=== PATIENT | female | born 1960 | race Caucasian/White ===

== ENCOUNTER 2020-03-31 08:46 | Outpatient (REF) | payer OTHER, MEDICARE, SELFPAY ==
--- NOTE | 2020-03-31 09:06 | XR_ITS ---
EXAMINATION: XR BILATERAL KNEES ONE VIEW. XR RIGHT KNEE. CLINICAL INFORMATION: Right knee pain. COMPARISON: 10/10/2018 TECHNIQUE: AP bilateral knees 1 view. Right knee 2 views. FINDINGS: Right Knee: Stable positioning and alignment of the right knee arthroplasty components. No fracture, dislocation or x-ray evidence of loosening is seen. Small suprapatellar joint fluid. Left Knee: Normal alignment. Maintained joint spaces. XR/XR knee standing BI IMPRESSION: Stable satisfactory appearance of the right knee arthroplasty.
--- NOTE | 2020-03-31 09:06 | XR_ITS ---
EXAMINATION: XR BILATERAL KNEES ONE VIEW. XR RIGHT KNEE. CLINICAL INFORMATION: Right knee pain. COMPARISON: 10/10/2018 TECHNIQUE: AP bilateral knees 1 view. Right knee 2 views. FINDINGS: Right Knee: Stable positioning and alignment of the right knee arthroplasty components. No fracture, dislocation or x-ray evidence of loosening is seen. Small suprapatellar joint fluid. Left Knee: Normal alignment. Maintained joint spaces. XR/XR knee RT 2V IMPRESSION: Stable satisfactory appearance of the right knee arthroplasty.
== END 2020-03-31 08:47 | disposition home or self-care (01) ==
LOC: HO.HOSX 08:46
PROVIDERS: Visit Provider Orthopaedic Surgery
DX: M25.561 Pain in right knee (principal); M25.562 Pain in left knee; M70.51 Other bursitis of knee, right knee
CPT/HCPCS: 20605; 20610; 73560; 73565; 99212; J1020

== ENCOUNTER 2023-01-05 10:00 | Emergency (ER) | payer OTHER, MEDICAID, SELFPAY ==
--- NOTE | ~2023-01-05 | XR_ITS ---
EXAMINATION: XR CHEST CLINICAL INFORMATION: Cough and shortness of breath COMPARISON: CT abdomen pelvis 10/21/2015 TECHNIQUE: 2 views of the chest were obtained. FINDINGS: Heart size normal. There is no evidence of CHF. Lungs are mildly hyperinflated with flattening of the diaphragms on the lateral radiograph suggesting underlying COPD. Some mild left basilar atelectasis is present with some obscuration of the left hemidiaphragm. No consolidations, pleural effusions or lung masses are seen. XR/XR chest 2V IMPRESSION: No acute intrathoracic disease. Mild left basilar atelectasis.
[2023-01-05 10:10] VITALS: BP 130/74; PULSE 94; RESP 19; TEMP 36.6; O2SAT 96; BMI 38.2
[2023-01-05 11:02] LABS: COVID-19 Test Negative (Negative); IDNOW Serial# 08D9AD1C; IDNOW Serial# BCCEAD1C; Influenza A Negative (Negative); Influenza B2 Negative (Negative)
--- NOTE | 2023-01-05 12:34 | ED.URI ---
HPI - URI/Sore Throat General Chief Complaint: Upper Respiratory Symptoms Stated Complaint: cough diff breathing Time Seen by Provider: 01/05/23 12:34 Source: patient Mode of arrival: ambulatory Limitations: no limitations History of Present Illness HPI Narrative: 62-year-old female, former smoker with history of COPD presents to the ER for evaluation of cough and shortness of breath for the last 1 week. She states she has had a productive cough with chest tightness when coughing. She is more short of breath with exertion than usual. She has been taking DayQuil and NyQuil with minimal relief. She lives with her grandson who has been sick with a upper respiratory tract infection. She denies any fevers but has had some chills. 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 She states her phlegm is white and has a hard time expectorating it. No hemoptysis. MD elicited complaint: cough and other ( Short of breath) Pertinent past history: COPD Onset (ago): week(s) (1) Consistency: progressively worsening Severity: moderate Description of mucous: clear and other ( white) Able to tolerate fluids by mouth: Yes Exacerbating factors: exertion Relieving factors: OTC cold medicine Context: sick contacts Associated symptoms: chills, nasal congestion, cough, chest pain and shortness of breath Treatments prior to arrival: none Related Data Home Medications Medication Instructions Recorded Confirmed ropinirole 2 mg tablet 2 mg PO DAILY 03/27/20 Previous Rx's Medication Instructions Recorded albuterol sulfate 90 mcg/actuation 2 puff inhalation Q4-6H PRN 01/05/23 aerosol inhaler shortness of breath or wheezing #8.5 grams azithromycin 250 mg tablet See Rx Instructions PO .COMPLEX #6 01/05/23 (Zithromax Z-Oscar) tabs benzonatate 100 mg capsule 100 mg PO TID PRN cough #20 caps 01/05/23 guaifenesin 1,200 mg tablet, 1,200 mg PO Q12H #14 tabs 01/05/23 extended release 12 hr (Mucinex) prednisone 10 mg tablets in a dose See Taper PO DAILY #48 ea 01/05/23 pack Allergies Allergy/AdvReac Type Severity Reaction Status Date / Time hydrocodone [From VICODIN] Allergy Mild NAUSEA & Verified 01/05/23 10:10 VOMITING acetaminophen [Vicodin] Allergy Unknown Nausea and Verified 01/05/23 10:10 Vomiting Review of Systems Review of Systems: Yes all other systems are reviewed and are negative [facility] Past Medical History Medical History (Updated 01/05/23 @ 12:35 by ALCIRA Emerson) Restless leg syndrome Surgical History (Updated 03/27/20 @ 12:26 by Kaylee Casillas CMA) History of total right knee replacement (~10/03/16) Previous section Social History Social History (Updated 03/27/20 @ 12:27 by Kaylee Casillas CMA) Advance Directives: No Current occupational status: retired Current occupation: Right Handed Physical Exam Vital Signs: Vital Signs: Last Vital Signs Temp 98 F 01/05/23 10:10 Pulse 94 01/05/23 10:10 Resp 19 01/05/23 10:10 BP 130/74 01/05/23 10:10 Pulse Ox 96 01/05/23 10:10 O2 Del Method Room Air 01/05/23 10:10 BMI result Body Mass Index 38.2 Appearance: Alert. Oriented X3. No acute distress. Head: normocephalic, atraumatic. Eyes: Pupils equal, round and reactive to light. ENT: Pharynx normal. No tonsillar swelling or exudate. Clear nasal drainage Neck: Normal inspection. Neck supple. CVS: Normal heart rate and rhythm. Pulses normal. Respiratory: No respiratory distress. speaking in complete sentences. expiratory rhonchi/wheeze scattered throughout. Some clear with congested coughing. Abdomen: Centrally obese, Soft and nontender. +BS x4 Skin: Skin warm and dry. Normal skin color. Normal skin turgor. No rashes. Extremities: No lower extremity edema. No joint swelling. No calf tenderness or swelling Neuro/psych: Oriented X 3. No motor deficit. No sensory deficit. CN II-XII intact. Normal speech and cognition. Medical Decision Making Medical Decision Making MDM Narrative: 60-year-old female with a history of COPD, obesity, former smoker who presents to the ER for evaluation of cough and shortness of breath for the last 1 week. Positive sick contacts from her grandson at home. She has scattered vein wheezing on examination, some of which are cleared with coughing. She is in no respiratory distress and saturating well on room air. She is having a hard time expectorates in her phlegm. Her chest x-ray was reviewed, no focal pneumonia appreciated. She is negative for COVID and flu. Her chest discomfort is only when coughing and is reproducible on examination. Doubt cardiac etiology. Will treat for acute bronchitis with steroids, antitussives, Z-Oscar, mucolytic and albuterol inhaler. She will follow-up with her primary care doctor, encourage pulmonary evaluation as well. She expressed understanding. All questions were answered and she is stable for discharge home. Return precautions were discussed. Differential Diagnosis Differential Diagnoses: The differential diagnosis associated with the presentation includes pneumonia, bronchitis, COPD exacerbation, CHF exacerbation, less likely ACS or PE Admission/Observation Consideration of admission/observation: Escalation of care including admission/observation considered 62-year-old female with history of COPD presenting with shortness of breath, had abnormal lung sounds but oxygenating well, comfortable discharge home rather than observation Lab Data MDM Lab Attestation statement: I reviewed the patient's lab results. Labs: Lab Results 01/05/23 Range/Units 10:15 COVID-19 (ALBINA) Negative (Negative) COVID-19 Clin Com See Note Influenza Type A (SRAVANTHI) Negative (Negative) Influenza Type B (SRAVANTHI) Negative (Negative) Influenza A & B Note See Note Independent Interpretation I performed an independent interpretation of an: Plain X-Ray Interpretation: no focal infiltrate, no effusion, agree w/ radiology read Radiology Impression Discussion of test interpretation with radiology: I have reviewed the radiologist's reading. Radiologist Impression: EXAMINATION: XR CHEST CLINICAL INFORMATION: Cough and shortness of breath COMPARISON: CT abdomen pelvis 10/21/2015 TECHNIQUE: 2 views of the chest were obtained. FINDINGS: Heart size normal. There is no evidence of CHF. Lungs are mildly hyperinflated with flattening of the diaphragms on the lateral radiograph suggesting underlying COPD. Some mild left basilar atelectasis is present with some obscuration of the left hemidiaphragm. No consolidations, pleural effusions or lung masses are seen. XR/XR chest 2V IMPRESSION: No acute intrathoracic disease. Mild left basilar atelectasis. External Record Review External record reviewed: Prior outpatient radiology Tests considered The following testing was considered but not selected: basic labs and EKG considered however this seems more like a upper respiratory tract infection and slight exacerbation of COPD rather than cardiac etiology, no evidence of sepsis Prescription Management I considered prescription management with: Antibiotic and Other ( bronchodilator and prednisone) Chronic Conditions Patient?s care impacted by: Other ( obesity, COPD) Critical Care Time Critical Care Time Critical Care Time: No Discharge Plan Discharge Clinical Impression: Bronchitis Patient Disposition: Home, Self-Care Instructions: Acute Bronchitis (ED) Additional Instructions: You tested negative for COVID-19 and influenza a and B. Your chest x-ray did not show any evidence of pneumonia. Take the the prescribed medications as directed. Recommend following up with her primary care doctor and pulmonology for further evaluation and treatment. If you develop new or worsening symptoms call 911 or come back to the ER for further evaluation. Prescriptions: New azithromycin [Zithromax Z-Oscar] 250 mg tablet See Rx Instructions .ROUTE .COMPLEX Qty: 6 0RF Rx Instructions: take 500 mg today (day 1), then 250 mg for 4 days (days 2-5) prednisone 10 mg tablets,dose pack See Taper PO DAILY Qty: 48 0RF Taper: Prednisone 40 mg daily for 3 Days and 0 Hour 30 mg daily for 3 Days and 0 Hour 20 mg daily for 3 Days and 0 Hour 10 mg daily for 3 Days and 0 Hour Mucinex 1,200 mg tablet extended release 12hr 1,200 mg PO Q12H Qty: 14 0RF benzonatate 100 mg capsule 100 mg PO TID PRN (Reason: cough) Qty: 20 0RF albuterol sulfate 90 mcg/actuation HFA aerosol inhaler 2 puff inhalation Q4-6H PRN (Reason: shortness of breath or wheezing) Qty: 8.5 0RF Referrals: [facility] [Provider Group] (untreated COPD, former smoker)
== END 2023-01-05 13:08 | disposition home or self-care (01) ==
PROVIDERS: Emergency Provider Emergency Medicine
DX: J40 Bronchitis, not specified as acute or chronic (principal); R06.02 Shortness of breath; Z20.822 Contact with and (suspected) exposure to COVID-19; J44.9 Chronic obstructive pulmonary disease, unspecified; Z87.891 Personal history of nicotine dependence
CPT/HCPCS: 71046; 87502; 87635; 99282; 99283

== ENCOUNTER 2023-04-18 09:34 | Emergency (ER) | payer OTHER, SELFPAY ==
--- NOTE | ~2023-04-18 | CT_ITS ---
EXAMINATION: CT HEAD WITHOUT CONTRAST CLINICAL INFORMATION: Fall. Head strike. COMPARISON: None available. TECHNIQUE: Contiguous axial imaging was performed from the skull base to vertex without intravenous administration of contrast. This CT examination was performed using dose optimization techniques as appropriate, variously including the following: *Automated exposure control. *Adjustment of mA and/or kV according to patient size (this includes techniques or standardized protocols for targeted exams where dose is matched to indication/reason for exam; i.e. extremities or head). *Use of iterative reconstruction technique. DLP: 677 mGy-cm FINDINGS: There is no evidence of acute intracranial hemorrhage or edematous territorial infarction. Gustafson-white matter differentiation is preserved. There is no abnormal attenuation within the brain parenchyma. The ventricles are normal in morphology and size. No evidence for obstructive hydrocephalus. No abnormal mass effect or midline shift. No extra-axial fluid collections. No acute soft tissue or osseous abnormalities. Mild mucosal thickening of the paranasal sinuses. Moderate rightward nasal septal deviation with spurring. The mastoid air cells and middle ear cavities are clear. CT/CT head/brain wo IV con IMPRESSION: No evidence of acute intracranial hemorrhage or edematous territorial infarction.
--- NOTE | ~2023-04-18 | XR_ITS ---
EXAMINATION: Lumbar spine and sacrum coccyx. CLINICAL INDICATIONS: Back pain. COMPARISON: Lumbar spine 02/20/2015. TECHNIQUE: Lumbar spine 3 views. Sacrum/coccyx 2 views. FINDINGS: LUMBAR SPINE: There is normal lumbar lordosis. The vertebral heights, alignment and disc heights are normal. There is no visible acute fracture, dislocation or subluxation seen. No aggressive lytic or sclerotic process. SACRUM AND/OR COCCYX: The SI joints are symmetrical. No visible fracture or bony abnormality seen. The soft tissues are normal. XR/XR sacrum coccyx min 2V IMPRESSION: 1. Unremarkable lumbar spine exam. 2. Unremarkable sacrum and/or coccyx exam.
--- NOTE | ~2023-04-18 | XR_ITS ---
EXAMINATION: Lumbar spine and sacrum coccyx. CLINICAL INDICATIONS: Back pain. COMPARISON: Lumbar spine 02/20/2015. TECHNIQUE: Lumbar spine 3 views. Sacrum/coccyx 2 views. FINDINGS: LUMBAR SPINE: There is normal lumbar lordosis. The vertebral heights, alignment and disc heights are normal. There is no visible acute fracture, dislocation or subluxation seen. No aggressive lytic or sclerotic process. SACRUM AND/OR COCCYX: The SI joints are symmetrical. No visible fracture or bony abnormality seen. The soft tissues are normal. XR/XR lumbar spine 2-3V IMPRESSION: 1. Unremarkable lumbar spine exam. 2. Unremarkable sacrum and/or coccyx exam.
[2023-04-18 10:19] VITALS: BP 148/105; PULSE 106; RESP 18; TEMP 37.9; O2SAT 97; BMI 36.8
[2023-04-18 11:02] LABS: Appearance Urine Cloudy; Color Urine Dark Yellow; Glucose Urine UA Negative (Negative); Leukocyte Esterase Urine Trace (Negative); Nitrite Urine Negative (Negative); Specific Gravity - Urine 1.025 (1.005-1.025); UMIC TRIGGER UACC YES; Urine Blood Trace (Negative); Urine Ketones Trace mg/dL (Negative); Urine Protein 30 (1+) mg/dL (Neg-Trace)
[2023-04-18 11:11] LABS: Bacteria Urine 4+ (None Seen); Hyaline Casts Urine 0-2 /LPF (0-2); RBC Urine >20 /HPF (0-2); Squamous Epithelial Cell Urine >20 /HPF (0-2); UACC Culture Trigger YES
[2023-04-18 15:26] LABS: Alanine Aminotransferase 23 U/L (0-31); Albumin Level 4.8 g/dL (3.5-5.0); Alkaline Phosphatase 116 U/L (39-117); Anion Gap 15 (12-20); Aspartate Amino Transferase 22 U/L (5-31); Bilirubin Direct 0.2 mg/dL (0.0-0.5); Bilirubin Total 0.4 mg/dL (0.0-1.0); Blood Urea Nitrogen 10 mg/dL (9-16); Calcium 9.8 mg/dL (8.4-10.2); Carbon Dioxide 26 mmol/L (22-29); Chloride 101 mmol/L (96-108); Creatinine Clr Calc Pharmacy 97.7; Estimated Glomerular Filt Rate > 60; Glucose Random 99 mg/dL (60-115); Magnesium 2.3 mg/dL (1.6-2.6); Potassium 3.8 mmol/L (3.3-5.1); Sodium 138 mmol/L (135-145); Total Protein 8.2 g/dL (6.5-8.0)
[2023-04-18 15:52] LABS: Basophils Percent Auto 0.3 % (0-2); Eosinophils Percent Auto 0.2 % (0-4); Hemoglobin 15.2 g/dl (12.0-16.0); Imm Gran Abs Auto 0.03 X10*3/uL (0.00-0.03); Imm Gran Pct Auto 0.5 % (0.0-0.4); Lymphocytes Absolute Auto 0.9 X10*3/uL (1.2-4.9); Lymphocytes Percent Auto 14.8 % (20-40); Mean Corpuscular Volume 90.9 fL (80.0-98.0); Mean Platelet Volume 10.5 fL (9.4-12.3); Monocytes Absolute Auto 0.8 X10*3/uL (0.1-1.2); Monocytes Percent Auto 13.2 % (2-11); Neutrophils Absolute Auto 4.5 x10*3/uL (2.0-8.3); Platelet Count 216 X10*3/uL (160-400); Red Blood Count 5.06 X10*6/uL (4.20-5.50); Red Cell Distribution Width 14.2 % (11.0-16.0); White Blood Count 6.3 X10*3/uL (4.8-10.8)
[2023-04-18 15:55] LABS: MANUAL DIFF FLAG NO
[2023-04-18 16:33] VITALS: BP 186/92; PULSE 97; RESP 18; TEMP 37; O2SAT 97
--- NOTE | 2023-04-18 16:35 | PC.NURSE ---
Patient brought in for re-evaluation. Patient complaining of generalized pain from a fall a few days ago and states that she is having bladder incontinence. Patient also worried because she is supposed to get a CT scan and ultrasound tomorrow to evaluate gallstones.
--- NOTE | 2023-04-18 16:40 | ED.GENADULT ---
HPI - General Adult General Chief complaint: General Medical Stated complaint: Fall wks ago/Urine incontinence/Headache Related Data Home Medications Medication Instructions Recorded Confirmed ropinirole 2 mg tablet 2 mg PO DAILY 03/27/20 Previous Rx's Medication Instructions Recorded albuterol sulfate 90 mcg/actuation 2 puff inhalation Q4-6H PRN 01/05/23 aerosol inhaler shortness of breath or wheezing #8.5 grams azithromycin 250 mg tablet See Rx Instructions PO .COMPLEX #6 01/05/23 (Zithromax Z-Oscar) tabs benzonatate 100 mg capsule 100 mg PO TID PRN cough #20 caps 01/05/23 guaifenesin 1,200 mg tablet, 1,200 mg PO Q12H #14 tabs 01/05/23 extended release 12 hr (Mucinex) prednisone 10 mg tablets in a dose See Taper PO DAILY #48 ea 01/05/23 pack Allergies Allergy/AdvReac Type Severity Reaction Status Date / Time hydrocodone [From VICODIN] Allergy Mild NAUSEA & Verified 04/18/23 10:18 VOMITING acetaminophen [Vicodin] Allergy Unknown Nausea and Verified 04/18/23 10:18 Vomiting PMFSH Past Medical History Onset Date is defined in the Problem List Problems that require an onset date and time if occurred within 24 hrs of arrival to the ED Aortic Dissection and Rupture; Neurologic impairment; Cardiopulmonary Arrest; Endotracheal Intubation; Insertion or Replacement of Mechanical Circulatory Assist Device Medical History (Updated 01/06/23 @ 00:01 by Jorge Mehta) Restless leg syndrome Surgical History (Updated 03/27/20 @ 12:26 by Kaylee Casillas CMA) History of total right knee replacement (~10/03/16) Previous section Social History Social History (Updated 03/27/20 @ 12:27 by Kaylee Casillas CMA) Advance Directives: No Advance Directives Information Provided: No Current occupational status: retired Current occupation: Right Handed Physical Exam ED Vital Signs: Vital Signs - 24 hr 04/18/23 10:19 04/18/23 16:33 Temperature 100.2 F 98.6 F Pulse Rate 106 H 97 Respiratory Rate 18 18 Blood Pressure 148/105 H 186/92 H Pulse Oximetry 97 97 Oxygen Delivery Method Room Air BMI result Body Mass Index 36.8 Course Course Course Narrative: This is an RME: Additional HPI, ROS, PE not included below will be deferred to primary provider. This is a 62-year-old female Presenting to the emergency department with complaints status post mechanical fall which occurred on 04/08/2023. she states that she took a step backwards off her deck and landed onto her buttocks striking her posterior head. She has had intermittent headaches, nausea, and urinary incontinence. Denies any dysuria, hematuria. no abdominal pain. She reports pain to her low back. she is neurologically intact plan: labs, UA, CT head, lumbar spine, sacrum x-rays Medications Administered Discontinued Medications Generic Name Dose Route Start Last Admin Trade Name Freq PRN Reason Stop Dose Admin Acetaminophen 975 mg 04/18/23 16:48 04/18/23 16:53 Acetaminophen 325 Mg Tablet PO 04/18/23 16:49 975 mg ONCE ONE Administration Medical Decision Making Lab Data 04/18/23 15:46 04/18/23 15:01 Labs: Lab Results 04/18/23 04/18/23 04/18/23 Range/Units 10:56 15:01 15:46 WBC 6.3 (4.8-10.8) X10*3/uL RBC 5.06 (4.20-5.50) X10*6/uL Hgb 15.2 (12.0-16.0) g/dl Hct 46.0 (37.0-47.0) % MCV 90.9 (80.0-98.0) fL MCH 30.0 (27.0-33.0) pg MCHC 33.0 (31.0-35.0) g/dl RDW 14.2 (11.0-16.0) % Plt Count 216 (160-400) X10*3/uL MPV 10.5 (9.4-12.3) fL Immature Gran % (Auto) 0.5 H (0.0-0.4) % Neut % (Auto) 71.0 (45-73) % Lymph % (Auto) 14.8 L (20-40) % [place] % (Auto) 13.2 H (2-11) % Eos % (Auto) 0.2 (0-4) % Baso % (Auto) 0.3 (0-2) % Lymph # (Auto) 0.9 L (1.2-4.9) X10*3/uL [place] # (Auto) 0.8 (0.1-1.2) X10*3/uL Eos # (Auto) 0.0 (0.0-0.4) X10*3/uL Baso # (Auto) 0.0 (0.0-0.2) X10*3/uL Abs Immat Gran (auto) 0.03 (0.00-0.03) X10*3/uL Absolute Neuts (auto) 4.5 (2.0-8.3) x10*3/uL Absolute Nucleated RBC 0.000 (0.0-0.012) X10*3/uL Nucleated RBC % (auto) 0.0 (0.0-0.2) /100WBC Sodium 138 (135-145) mmol/L Potassium 3.8 (3.3-5.1) mmol/L Chloride 101 (96-108) mmol/L Carbon Dioxide 26 (22-29) mmol/L Anion Gap 15 (12-20) BUN 10 (9-16) mg/dL Creatinine 0.75 (0.5-1.4) mg/dL Estim Creat Clear Calc 97.7 Estimated GFR > 60 Random Glucose 99 (60-115) mg/dL Calcium 9.8 (8.4-10.2) mg/dL Magnesium 2.3 (1.6-2.6) mg/dL Total Bilirubin 0.4 (0.0-1.0) mg/dL Direct Bilirubin 0.2 (0.0-0.5) mg/dL AST 22 (5-31) U/L ALT 23 (0-31) U/L Alkaline Phosphatase 116 (39-117) U/L Total Protein 8.2 H (6.5-8.0) g/dL Albumin 4.8 (3.5-5.0) g/dL Urine Color Dark Yellow Urine Appearance Cloudy Urine pH 6.0 (5.0-9.0) Ur Specific Pinson 1.025 (1.005-1.025) Urine Protein 30 (1+) H (Neg-Trace) mg/dL Urine Glucose (UA) Negative (Negative) mg/dL Urine Ketones Trace (Negative) mg/dL Urine Blood Trace H (Negative) Urine Nitrite Negative (Negative) Ur Leukocyte Esterase Trace H (Negative) Urine RBC >20 H (0-2) /HPF Urine WBC 6-10 H (0-5) /HPF Ur Squamous Epith Cells >20 (0-2) /HPF Urine Bacteria 4+ (None Seen) Hyaline Casts 0-2 (0-2) /LPF Discharge Plan Discharge Prescriptions: No Action azithromycin [Zithromax Z-Oscar] 250 mg tablet See Rx Instructions .ROUTE .COMPLEX Qty: 6 0RF Rx Instructions: take 500 mg today (day 1), then 250 mg for 4 days (days 2-5) prednisone 10 mg tablets,dose pack See Taper PO DAILY Qty: 48 0RF Taper: Prednisone 40 mg daily for 3 Days and 0 Hour 30 mg daily for 3 Days and 0 Hour 20 mg daily for 3 Days and 0 Hour 10 mg daily for 3 Days and 0 Hour Mucinex 1,200 mg tablet extended release 12hr 1,200 mg PO Q12H Qty: 14 0RF benzonatate 100 mg capsule 100 mg PO TID PRN (Reason: cough) Qty: 20 0RF albuterol sulfate 90 mcg/actuation HFA aerosol inhaler 2 puff inhalation Q4-6H PRN (Reason: shortness of breath or wheezing) Qty: 8.5 0RF
[2023-04-18] MEDS: Acetaminophen 325 MG TABLET 975 MG PO (16:53)
--- NOTE | 2023-04-18 20:06 | ED_ITS ---
HPI - General Adult General Chief complaint: General Medical Stated complaint: Fall wks ago/Urine incontinence/Headache Time Seen by Provider: 04/18/23 19:51 History of Present Illness HPI narrative: Patient is a 62-year-old female with a history of accidental fall approximately 1 week ago. Landed on the back of her head. There is no loss of consciousness. Since then patient has been having headaches. Patient also complaining of having increasing frequency. Patient knows when she needs to go but is unable to make it to the bathroom. Denies any focal weakness in the lower extremity. Patient is not on any blood thinners. There is also back pain associated with the fall. Patient claims that she landed on her back and in a occipital area. Denies any fever chills. Denies any coughing congestion upper respiratory symptoms. Denies any diaphoresis. Denies any neck pain. Related Data Home Medications Medication Instructions Recorded Confirmed ropinirole 2 mg tablet 2 mg PO DAILY 03/27/20 Previous Rx's Medication Instructions Recorded albuterol sulfate 90 mcg/actuation 2 puff inhalation Q4-6H PRN 01/05/23 aerosol inhaler shortness of breath or wheezing #8.5 grams azithromycin 250 mg tablet See Rx Instructions PO .COMPLEX #6 01/05/23 (Zithromax Z-Oscar) tabs benzonatate 100 mg capsule 100 mg PO TID PRN cough #20 caps 01/05/23 guaifenesin 1,200 mg tablet, 1,200 mg PO Q12H #14 tabs 01/05/23 extended release 12 hr (Mucinex) prednisone 10 mg tablets in a dose See Taper PO DAILY #48 ea 01/05/23 pack cephalexin 500 mg capsule 500 mg PO Q8H 7 days #21 caps 04/18/23 ibuprofen 400 mg tablet 400 mg PO Q6H PRN pain #20 tabs 04/18/23 Allergies Allergy/AdvReac Type Severity Reaction Status Date / Time hydrocodone [From VICODIN] Allergy Mild NAUSEA & Verified 04/18/23 10:18 VOMITING Review of Systems 2 Review of Systems: Positive head injury approximately 1 week ago Positive increasing frequency Yes all other systems are reviewed and are negative PMFSH Past Medical History Attestation statement: The following information was validated with the patient. Onset Date is defined in the Problem List Problems that require an onset date and time if occurred within 24 hrs of arrival to the ED Aortic Dissection and Rupture; Neurologic impairment; Cardiopulmonary Arrest; Endotracheal Intubation; Insertion or Replacement of Mechanical Circulatory Assist Device Medical History Restless leg syndrome Surgical History History of total right knee replacement (~10/03/16) Previous section Social History Social History Smoked in Last 30 Days: No Use of substances other than those prescribed or required for medical reasons: No Advance Directives: No Advance Directives Information Provided: No Patient : No Current occupational status: retired Current occupation: Right Handed Physical Exam ED Vital Signs: Vital Signs - 24 hr 04/18/23 10:19 04/18/23 16:33 Temperature 100.2 F 98.6 F Pulse Rate 106 H 97 Respiratory Rate 18 18 Blood Pressure 148/105 H 186/92 H Pulse Oximetry 97 97 Oxygen Delivery Method Room Air BMI result Body Mass Index 36.8 Medications Administered Discontinued Medications Generic Name Dose Route Start Last Admin Trade Name Freq PRN Reason Stop Dose Admin Acetaminophen 975 mg 04/18/23 16:48 04/18/23 16:53 Acetaminophen 325 Mg Tablet PO 04/18/23 16:49 975 mg ONCE ONE Administration Medical Decision Making Medical Decision Making [facility] Narrative: Patient is status post head injury is still complaining of extreme headache since the accident. A CT scan of the head was ordered. I reviewed radiology's reading which was grossly negative for any acute evidence of bleeding there is no fracture. Patient also complaining of lower back pain. There is no bowel urinary incontinence. Patient feels an increasing frequency of urination. Lumbar and sacral x-rays were both grossly negative for any acute fracture by my interpretation. A review radiology's reading. Patient's urine showed lots of contamination. Question UTI. In this setting will treat patient with Keflex for 1 week. Will have patient follow-up on an outpatient basis. Head injury precaution. Currently in stable condition. Differential Diagnosis Differential Diagnoses: The differential diagnosis associated with the presentation includes Intracranial bleed, fracture. Lumbar spine fracture, UTI, order coronary syndrome, spine fracture Admission/Observation Consideration of admission/observation: Escalation of care including admission/observation considered No need to be admitted. Patient is neurologically intact. Lab Data MDM Lab Attestation statement: I reviewed the patient's lab results. 04/18/23 15:46 04/18/23 15:01 Labs: Lab Results 04/18/23 04/18/23 04/18/23 Range/Units 10:56 15:01 15:46 WBC 6.3 (4.8-10.8) X10*3/uL RBC 5.06 (4.20-5.50) X10*6/uL Hgb 15.2 (12.0-16.0) g/dl Hct 46.0 (37.0-47.0) % MCV 90.9 (80.0-98.0) fL MCH 30.0 (27.0-33.0) pg MCHC 33.0 (31.0-35.0) g/dl RDW 14.2 (11.0-16.0) % Plt Count 216 (160-400) X10*3/uL MPV 10.5 (9.4-12.3) fL Immature Gran % (Auto) 0.5 H (0.0-0.4) % Neut % (Auto) 71.0 (45-73) % Lymph % (Auto) 14.8 L (20-40) % [place] % (Auto) 13.2 H (2-11) % Eos % (Auto) 0.2 (0-4) % Baso % (Auto) 0.3 (0-2) % Lymph # (Auto) 0.9 L (1.2-4.9) X10*3/uL [place] # (Auto) 0.8 (0.1-1.2) X10*3/uL Eos # (Auto) 0.0 (0.0-0.4) X10*3/uL Baso # (Auto) 0.0 (0.0-0.2) X10*3/uL Abs Immat Gran (auto) 0.03 (0.00-0.03) X10*3/uL Absolute Neuts (auto) 4.5 (2.0-8.3) x10*3/uL Absolute Nucleated RBC 0.000 (0.0-0.012) X10*3/uL Nucleated RBC % (auto) 0.0 (0.0-0.2) /100WBC Sodium 138 (135-145) mmol/L Potassium 3.8 (3.3-5.1) mmol/L Chloride 101 (96-108) mmol/L Carbon Dioxide 26 (22-29) mmol/L Anion Gap 15 (12-20) BUN 10 (9-16) mg/dL Creatinine 0.75 (0.5-1.4) mg/dL Estim Creat Clear Calc 97.7 Estimated GFR > 60 Random Glucose 99 (60-115) mg/dL Calcium 9.8 (8.4-10.2) mg/dL Magnesium 2.3 (1.6-2.6) mg/dL Total Bilirubin 0.4 (0.0-1.0) mg/dL Direct Bilirubin 0.2 (0.0-0.5) mg/dL AST 22 (5-31) U/L ALT 23 (0-31) U/L Alkaline Phosphatase 116 (39-117) U/L Total Protein 8.2 H (6.5-8.0) g/dL Albumin 4.8 (3.5-5.0) g/dL Urine Color Dark Yellow Urine Appearance Cloudy Urine pH 6.0 (5.0-9.0) Ur Specific [place] 1.025 (1.005-1.025) Urine Protein 30 (1+) H (Neg-Trace) mg/dL Urine Glucose (UA) Negative (Negative) mg/dL Urine Ketones Trace (Negative) mg/dL Urine Blood Trace H (Negative) Urine Nitrite Negative (Negative) Ur Leukocyte Esterase Trace H (Negative) Urine RBC >20 H (0-2) /HPF Urine WBC 6-10 H (0-5) /HPF Ur Squamous Epith Cells >20 (0-2) /HPF Urine Bacteria 4+ (None Seen) Hyaline Casts 0-2 (0-2) /LPF Independent Interpretation I performed an independent interpretation of an: Plain X-Ray (Lumbar sacral film were all negative) and CT Scan (Patient's CT scan of the head was grossly negative for any acute bleeding no fracture) Radiology Impression Discussion of test interpretation with radiology: I have reviewed the radiologist's reading. Prescription Management I considered prescription management with: Pain Medication and Antiviral No need for additional pain medication. Will prescribe patient antibiotics for the possible UTI. No need for antiviral. Chronic Conditions History of restless leg syndrome Discharge Plan Discharge Clinical Impression: Head injury, acute, UTI (urinary tract infection) Patient Disposition: Home, Self-Care Instructions: Head Injury (ED), Urinary Tract Infection in Older Adults (ED) Prescriptions: New cephalexin 500 mg capsule 500 mg PO Q8H 7 Days Qty: 21 0RF ibuprofen 400 mg tablet 400 mg PO Q6H PRN (Reason: pain) Qty: 20 0RF No Action azithromycin [Zithromax Z-Oscar] 250 mg tablet See Rx Instructions .ROUTE .COMPLEX Qty: 6 0RF Rx Instructions: take 500 mg today (day 1), then 250 mg for 4 days (days 2-5) prednisone 10 mg tablets,dose pack See Taper PO DAILY Qty: 48 0RF Taper: Prednisone 40 mg daily for 3 Days and 0 Hour 30 mg daily for 3 Days and 0 Hour 20 mg daily for 3 Days and 0 Hour 10 mg daily for 3 Days and 0 Hour Mucinex 1,200 mg tablet extended release 12hr 1,200 mg PO Q12H Qty: 14 0RF benzonatate 100 mg capsule 100 mg PO TID PRN (Reason: cough) Qty: 20 0RF albuterol sulfate 90 mcg/actuation HFA aerosol inhaler 2 puff inhalation Q4-6H PRN (Reason: shortness of breath or wheezing) Qty: 8.5 0RF Referrals: Physician,Unknown J [Primary Care Provider] - 04/21/23
== END 2023-04-18 20:37 | disposition home or self-care (01) ==
PROVIDERS: Physician Assistant Medical; Emergency Provider Emergency Medicine Emergency Medical Services
DX: N39.0 Urinary tract infection, site not specified (principal); S09.90XA Unspecified injury of head, initial encounter; W19.XXXA Unspecified fall, initial encounter; Y93.9 Activity, unspecified; Y92.9 Unspecified place or not applicable; Y99.9 Unspecified external cause status
CPT/HCPCS: 36415; 70450; 72100; 72220; 80048; 80076; 81001; 81003; 83735; 85025; 87086; 99284

== ENCOUNTER 2024-05-03 12:00 | Emergency (ER) | payer MEDICARE, MEDICAID, SELFPAY ==
--- NOTE | ~2024-05-03 | XR_ITS ---
EXAMINATION: XR KNEE, RIGHT CLINICAL INFORMATION: fall/pain COMPARISON: None available. TECHNIQUE: Four views of the right knee. FINDINGS: The total right knee prosthesis with prosthetic components in satisfactory alignment. No visible acute periprosthetic fracture or dislocation seen. No loose bodies or joint effusion seen. The soft tissues are normal. XR/XR knee RT 4V IMPRESSION: Total right knee prosthesis in satisfactory alignment. Electronically signed by: Zion Rodriguez MD 05/03/2024 02:10 PM [facility]
--- NOTE | ~2024-05-03 | XR_ITS ---
EXAMINATION: XR SHOULDER, RIGHT CLINICAL INFORMATION: fall/pain' COMPARISON: None available. TECHNIQUE: AP external rotation, Grashey, scapular Y, and axillary views of the right shoulder. FINDINGS: No acute cortical disruption or malalignment. No lytic or blastic lesions. 2 mm well-corticated calcification in the superior glenoid right scapula. No subcutaneous emphysema. No metallic or radiopaque foreign body. XR/XR shoulder RT min 2V IMPRESSION: No acute fracture or dislocation. Electronically signed by: Alexey Andersen MD 05/03/2024 01:23 PM [facility]
[2024-05-03 12:48] VITALS: BP 189/105; PULSE 87; RESP 18; TEMP 36.3; O2SAT 95; BMI 38.0
--- NOTE | 2024-05-03 15:50 | ED_ITS ---
HPI - Extremity Problem General Chief complaint: Extremity Problem Stated complaint: fall, shoulder and knee pain Time Seen by Provider: 05/03/24 14:50 History of Present Illness HPI Narrative: Patient complains of right shoulder and right knee pain after a trip and fall on the sidewalk this morning, she did not hit her head she was helped back onto her feet was able to bear weight she had no preceding dizziness, this is not a syncope or presyncope she never had chest pain palpitations no headache no neck pain no numbness weakness or tingling, no lacerations no other injuries Related Data Home Medications ?Medication ?Instructions ?Recorded ?Confirmed ropinirole 2 mg tablet 2 mg PO DAILY 03/27/20 Previous Rx's ?Medication ?Instructions ?Recorded albuterol sulfate 90 mcg/actuation 2 puff inhalation Q4-6H PRN 01/05/23 aerosol inhaler shortness of breath or wheezing #8.5 grams azithromycin 250 mg tablet See Rx Instructions PO .COMPLEX #6 01/05/23 (Zithromax Z-Oscar) tabs benzonatate 100 mg capsule 100 mg PO TID PRN cough #20 caps 01/05/23 guaifenesin 1,200 mg tablet, 1,200 mg PO Q12H #14 tabs 01/05/23 extended release 12 hr (Mucinex) prednisone 10 mg tablets in a dose See Taper PO DAILY #48 ea 01/05/23 pack cephalexin 500 mg capsule 500 mg PO Q8H 7 days #21 caps 04/18/23 ibuprofen 400 mg tablet 400 mg PO Q6H PRN pain #20 tabs 04/18/23 oxycodone 5 mg tablet 5 mg PO Q6H PRN pain #14 tabs 05/03/24 Allergies Allergy/AdvReac Type Severity Reaction Status Date / Time hydrocodone [From VICODIN] Allergy Mild NAUSEA & Verified 05/03/24 12:49 VOMITING PMF Past Medical History Source: nursing notes reviewed Medical History Restless leg syndrome Surgical History History of total right knee replacement (~10/03/16) Previous section Social History Social History Advance Directives: No Advance Directives Information Provided: Yes Current occupational status: retired Current occupation: Right Handed Physical Exam Vital Signs: Vital Signs: Last Vital Signs Temp 98.2 F 05/03/24 16:52 Pulse 96 05/03/24 16:52 Resp 18 05/03/24 16:52 BP 183/109 H 05/03/24 16:52 Pulse Ox 96 05/03/24 16:52 O2 Del Method Room Air 05/03/24 12:48 BMI result Body Mass Index 38.0 Elevated blood pressure reading is noted, patient has no prior history of hypertension but is advised that she should keep a log at home of her blood p ressure readings and bring it to primary care doctor for next available appointment to be evaluated for hypertension General appearance come comfortable cooperative no acute distress Head is normocephalic atraumatic Neck is supple and nontender The back has full range of motion Chest wall no tenderness no respiratory distress Extremities the right knee has an abrasion, but no significant swelling or tenderness and she can ambulate with a very minimal limp easily without assistance The right shoulder is held in internal rotation and is very uncomfortable when ranged and she has very limited range of motion, there is no tenderness anywhere else in the arm except in the anterior right shoulder which is not obviously swollen deformed or ecchymotic The arm is neurovascular intact distal with no significant tenderness of elbow wrist or hand Course Course Course Narrative: Right knee x-ray showed normal prosthesis no acute fracture or change Right shoulder x-ray did not show an obvious separation dislocation or fracture and was without acute findings Patient is given a sling She is advised to follow with orthopedist for a possible rotator cuff tear and also advised to follow with primary care for possible new diagnosis of hypertension She was given a tetanus shot for the abrasion on her right knee Medications Administered Discontinued Medications Generic Name Dose Route Start Last Admin Trade Name Freq PRN Reason Stop Dose Admin Diphtheria/Tetanus/Acell Pertussis 0.5 ml 05/03/24 16:27 05/03/24 16:39 Diphth,Pertus(Acell),Tet Adult 0.5 Ml Syringe IM 05/03/24 16:28 0.5 ml .ONCE ONE Administration Discharge Plan Discharge Clinical Impression: Sprain of shoulder, Elevated blood pressure reading Patient Disposition: Home, Self-Care Additional Instructions: X-ray did not show any broken bone or obvious shoulder separation but you have likely strained or sprained or torn ligaments and muscles in your shoulder This may better in several weeks, but best plan is to follow with orthopedist for further evaluation Use of a sling may be good for pain control but you have to take it off periodically during the day and move your shoulder as best possible as if you leave the sling on and do not move the shoulder you will have a frozen shoulder in a lot of difficulty getting the range of motion and use back Return any time any worse condition or any concerns Your blood pressure was elevated during this visit and the last, but pain and stress of being in the ER can elevate blood pressure Best plan is to get a home blood pressure cuff and keep a log of the readings for at least a week twice a day 3 times a day And then make an appointment with primary doctor to be evaluated for hypertension, high blood pressure can cause heart attack and strokes and it is important to get it under control if you have it Prescriptions: New oxycodone 5 mg tablet 5 mg PO Q6H PRN (Reason: pain) Qty: 14 0RF Rx Instructions: Partial Fill upon patient request. No Action azithromycin [Zithromax Z-Oscar] 250 mg tablet See Rx Instructions .ROUTE .COMPLEX Qty: 6 0RF Rx Instructions: take 500 mg today (day 1), then 250 mg for 4 days (days 2-5) prednisone 10 mg tablets,dose pack See Taper PO DAILY Qty: 48 0RF Taper: Prednisone 40 mg daily for 3 Days and 0 Hour 30 mg daily for 3 Days and 0 Hour 20 mg daily for 3 Days and 0 Hour 10 mg daily for 3 Days and 0 Hour Mucinex 1,200 mg tablet extended release 12hr 1,200 mg PO Q12H Qty: 14 0RF benzonatate 100 mg capsule 100 mg PO TID PRN (Reason: cough) Qty: 20 0RF albuterol sulfate 90 mcg/actuation HFA aerosol inhaler 2 puff inhalation Q4-6H PRN (Reason: shortness of breath or wheezing) Qty: 8.5 0RF cephalexin 500 mg capsule 500 mg PO Q8H 7 Days Qty: 21 0RF ibuprofen 400 mg tablet 400 mg PO Q6H PRN (Reason: pain) Qty: 20 0RF Referrals: Torin Culp MD [Physician] - (Left shoulder injury) Interventions: ED Discharge Assessment Last Done: 05/03/24 16:52 Discharge Date/Time: 05/03/24 16:53 Print Language: Surinamese
[2024-05-03] MEDS: Diphth,Pertus(ACell),Tet Adult 0.5 ML SYRINGE IM (16:39)
[2024-05-03 16:52] VITALS: BP 183/109; PULSE 96; RESP 18; TEMP 36.8; O2SAT 96
== END 2024-05-03 16:53 | disposition home or self-care (01) ==
PROVIDERS: Emergency Provider Emergency Medicine
DX: S43.401A Unspecified sprain of right shoulder joint, initial encounter (principal); S80.211A Abrasion, right knee, initial encounter; W01.0XXA Fall on same level from slipping, tripping and stumbling without subsequent striking against object, initial encounter; R03.0 Elevated blood-pressure reading, without diagnosis of hypertension; M25.511 Pain in right shoulder; M25.561 Pain in right knee; Y93.9 Activity, unspecified; Y92.480 Sidewalk as the place of occurrence of the external cause; Y99.9 Unspecified external cause status; Z23 Encounter for immunization
CPT/HCPCS: 73030; 73564; 90471; 90715; 99282; 99284

== ENCOUNTER → 2024-05-03 13:10 | Outpatient (BNV) | payer OTHER, SELFPAY | PROVIDERS: Visit Provider Radiology Diagnostic Radiology | DX: M25.561 Pain in right knee (principal); M25.511 Pain in right shoulder; W19.XXXA Unspecified fall, initial encounter | CPT/HCPCS: 73030; 73564 ==

== ENCOUNTER 2024-05-20 11:34 | Outpatient (AMB) | payer MEDICARE, MEDICAID, SELFPAY ==
[2024-05-20 11:38] VITALS: BMI 37.9
--- NOTE | 2024-05-20 11:38 | MHC.OFFVIS ---
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 Patient was seen at [facility] ER s/p fall injuring her right shoulder and right knee, x-rays were taken and referred to orthopedics. Patient reports ongoing shoulder pain that radiates down her arm to her elbow and up towards her neck. She had a tingling sensation in her fingers however this has subsided. She mentions having intermittent sharp pain in her right knee and a lump that is located at the medial aspect of knee. Hx of RT TKA 5-6 years ago here at [facility]. 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 She states she fell on 05/03/2024 and since then she has had difficulty with raising the arm or lifting. She has pain with activities. Prior to this injury she has full function of the right shoulder without limitations. [facility] Medical History Restless leg syndrome Surgical History History of total right knee replacement (~10/03/16) Previous section Social History Current occupational status: retired Current occupation: Right Handed Review of Systems Const All systems reviewed & are unremarkable except as noted in HPI and below Physical Exam Vital Signs: BMI result Body Mass Index 37.9 Const General: cooperative and no acute distress Orientation/consciousness: patient oriented x3 Resp Effort & Inspection: normal respiratory effort and able to speak in complete sentences Cardio Peripheral pulses: Peripheral pulses 2+ throughout Neuro General: patient oriented x3 Extrem Other: Right shoulder normal to inspection. Forward flexion to 90 degrees. Passively I can bring her to about 100 degrees. External rotation of 45 internal rotation back pocket significant weakness on the right with rotator cuff strength testing compared to contralateral side. Results Reviewed Results Reviewed: X-rays of the right shoulder obtained in the office today and reviewed by me are negative for deep acute fractures or dislocations. There does appear to be some cystic changes along the humeral head. Assessment & Plan Assessment & Plan (1) Injury of right rotator cuff: Code(s): S46.001A - Unspecified injury of muscle(s) and tendon(s) of the rotator cuff of right shoulder, initial encounter Category: Medical Plan: Given her physical exam findings with significant rotator cuff weakness and her history the plan is to order an MRI of the right shoulder which was ordered today to further evaluate the rotator cuff and surrounding structures. Once the scan is complete I will contact her to discuss the next step in her treatment. Orders: Orders MR shoulder RT wo con Today M77.8 - Other enthesopathies, not elsewhere classified Coding Level of Care Code New Pt Level 3 (53868) Complex EM visit Add On G2211 Diagnoses Injury of right rotator cuff S46.001A
--- OUTSIDE RECORDS SUMMARY | 2024-05-20 12:52 | XMS_ITS | Clinical Summary ---
Author Organization [facility] Address [address] [place] [address] Care Team Providers Care Assistant Activities Director Name Role Phone Danielle Evans MD Primary Care Provider [phone] Allergies Active Allergy Reactions Criticality Noted Date Comments Hydrocodone-Acetaminophen 09/25/2015 Nausea, dizzy Medications Medication Sig Dispensed Refills Start Date End Date Status bisacodyL (Dulcolax, bisacodyl,) 5 mg EC tablet Take 4 tabs by mouth right before beginning bowel prep. Follow instructions given by office for timing. 08/26/2021 Active rOPINIRole (REQUIP) 2 mg tablet TAKE 2 TABLETS BY MOUTH AT BEDTIME 01/05/2022 Active Active Problems Problem Noted Date Diagnosed Date Hyperglycemia 12/30/2021 Elevated blood pressure reading 05/13/2021 Marijuana use 02/08/2019 Tinea cruris 06/20/2018 Diverticulitis of large inte perla without perforation or abscess without bleeding 09/25/2015 Chronic obstructive pulmonary disease 05/09/2015 IBS (irritable bowel syndrome) 01/23/2015 Obesity, morbid (more than 1 00 lbs over ideal weight or BMI > 40) 08/20/2013 Seizures 10/22/2012 Chronic pain 12/07/2010 Fatty liver 07/07/2010 Elevated alkaline phosphatase level 05/17/2010 Sleep apnea 12/10/2009 Hyperlipidemia 12/29/2008 Depression 07/01/2008 DJD (degenerative joint disease), lumbar 009 Restless leg syndrome 04/22/2008 Immunizations Name Administration Dates Next Due Influenza Quadravalent, MDCK , 0.5ml, preservative free (Flucelvax) 6mo and older 12/30/2021,05/13/2021,01/13/2020,05/03,05/01/2018 Influenza trivalent, with pr eservative (Fluzone; Afluria) 6mo and older 01/22/2013,12/23/2011,01/06/2011,03/19,02/21/2008 Influenza, Unspecified 01/12/2015 Pfizer SARS-CoV-2 COVID-19, mRNA, LNP-S, preservative free 05/26/2021 Pneumococcal polysaccharide 23 valent (Pneumovax 23) 2yo and older 01/20/2012 Td Tetanus diptheria (Tdvax) 7yo and older 05/01/2018 Tdap Tetanus diptheria acell ular pertussis (Boostrix; Adacel) 7yo and older 03/03/2008 Surgical History Surgery Date Site/Laterality Comments SECTION PROCEDURE: HISTORICAL TUBAL LIGATION PROCEDURE: HISTORICAL TUBAL LIGATION COLONOSCOPY 05/11/10 PROCEDURE: HISTORICAL COLONOSCOPY; COMMENT: tics; repeat in ten years ESOPHAGOGASTRODUODENOSCOPY 05/11/10 PROCEDURE: DE ESOPHAGOGASTRODUODENOSCOPY TRANSORAL DIAGNOSTIC; COMMENT: normal Medical History Medical History Date Comments Historical Medical DX 01/10/2008 DX:COPD Restless leg syndrome DX:Restles s leg syndrome Back pain DX:Back pain Obesity DX:Obesity Depression DX:Depression Hyperlipemia DX:Hyperlipemia Fatty liver 07/07/2010 DX:Fatty liver Abdominal pain 02/07/2011 DX:Abdominal dennise n Diverticulitis 05/24/11, sigmoid DX:Diverticuliti s Seizures (CMS/HCC) 11/2012 DX:Seizures ( HCC); COMMENT: Dr Casey Family History Medical History Relation Name Comments Other: diverticulitis Father Prostate cancer Father Breast cancer Mother 56 late 40s Other: suden while sleep at age 64 Mother 56 sudden in bed age 60's Colon cancer Neg Hx Ovarian cancer Neg Hx Relation Name Status Comments Father Mother 56 Social History Tobacco Use Types Packs/Day Years Used Date Smoking Tobacco: Former Cigarettes 1.5 17 0 1985 - 04/17/2002 Smokeless Tobacco: Former Alcohol Use Standard Drinks/Week Comments No 0 (1 standard drink = 0.6 oz pur e alcohol) Sex and Gender Information Value Date Recorded Sex Assigned at Not on file Gender Identity Not on file Sexual Orientation Not on file Obstetrics History Last Filed Vital Signs Vital Sign Reading Time Taken Comments Blood Pressure 126/86 12/30/2021 11:03 AM EDT Pulse 86 12/30/2021 11:03 AM EDT Temperature - - Respiratory Rate - - Oxygen Saturation - - Inhaled Oxygen Concentration - - Weight 107 kg (236 lb 3.2 oz) 12/30/2021 11:03 A M EDT Height 162.6 cm (5' 4 ) 12/30/2021 11:03 AM EDT Body Mass Index 40.54 12/30/2021 11:03 AM EDT Plan of Treatment Health Maintenance Due Date Last Done Comments Zoster Vaccines (1 of 2) 2010 Pneumococcal Vaccine: Pediatrics (0 to 5 Years) and At-Risk Patients (6 to 64 Years) (2 of 2 - PCV) 01/19/2013 01/20/2012 Cervical Cancer Screening: Pap Smear 02/12/2016 02/11/2013, 02/11/2013 RSV Immunization Patients 60+ Years Old (1 - Risk 60-74 years 1-dose series) 2020 Colorectal Cancer Screening: Colonoscopy 03/26/2022 Depression Screening 03/26/2022 HIV Screening 03/26/2022 Medicare Annual Wellness Visit 03/26/2022 Social Influencers of Health Screening 03/26/2022 Breast Cancer Screening 07/08/2022 07/08/2020, 07/06 COVID-19 Vaccine ( season) 2023 05/26/2021, 08/07/2020, 07/15/2020 Influenza Vaccine (#1) 2023 , 05/13/2021, 01/13/2020, Additional history exists Cholesterol Screening (Lipid Panel) 06/21/2026 06/21/2021 DTaP,Tdap,and Td Vaccines (3 - Td or Tdap) 05/01/2028 05/01/2018, 03/03/2008 Hepatitis C Screening Completed 08/30/2012 HIB Vaccines Aged Out No longer eligi ble based on patient's age to complete this topic HPV Vaccines Aged Out No longer eligi ble based on patient's age to complete this topic Hepatitis A Vaccines Aged Out No long er eligible based on patient's age to complete this topic Hepatitis B Vaccines Aged Out No long er eligible based on patient's age to complete this topic IPV Vaccines Aged Out No longer eligi ble based on patient's age to complete this topic MMR Vaccines Aged Out No longer eligi ble based on patient's age to complete this topic Meningococcal ACWY Vaccine Aged Out N o longer eligible based on patient's age to complete this topic RSV Immunization Patients Under 20 months Aged Out No longer eligible based on patient's age to complete this topic Varicella Vaccines Aged Out No longer eligible based on patient's age to complete this topic Procedures Procedure Name Priority Date/Time Associated Diagnosis Comments LIPID PANEL Routine 06/21/2021 SCR MAMMO BI INCL CAD Routine 07/08/2020 4:28 PM EDT Encounter for screening mammogram for malignant neoplasm of breast HPV Routine 02/11/2013 HEPATITIS C SCREENING Routine 08/30/2012 from Last 3 Months or Most Recently Relevant to Health Maintenance Results * (ABNORMAL) Lipid panel (06/21/2021) LDL/HDL Ratio 4 0 - 4 Triglycerides 95 0 - 150 mg/dL Cholesterol 214(A) 0 - 200 mg/dL HDL 51 40 mg/dL LDL Cholesterol 144(A) 0 - 100 mg/dL Blood Venous blood specimen / Unknown Historical Provider LAB BLOOD ORDERAB LES * SCR MAMMO BI INCL CAD (07/08/2020 4:28 PM EDT) Anatomical Region Laterality Modality Radiographic Cherri ging 07/06/2018 10:2 7 AM EDT Narrative 07/09/2020 12:28 PM EDT This is a summary report. The complete report is available in the patient's medical record. If you cannot access the medical record, please contact the sending organization for a detailed fax or copy. Full field digital screening mammography, reviewed with CAD and compared to previous. ??The breasts are composed of fatty and fibroglandular tissue. ??No suspicious mass, architectural distortion or suspicious calcifications are identified. IMPRESSION: : No mammographic evidence of malignancy. BIRADS 1-Negative; N. 5 year breast cancer risk assessment 2.5 % Lifetime breast cancer risk assessment 12.4 % Breast cancer risk category Low (<15%) Procedure Note Yanet Benitez MD - 04/05/2022 This is a summary report. The complete report is available in thepatient's medical record. If you cannot access the medical record, pleasecontact the sending organization for a detailed fax or copy. Full field digital screening mammography, reviewed with CAD and comparedto previous. The breasts are composed of fatty and fibroglandular tissue.No suspicious mass, architectural distortion or suspicious calcificationsare identified. IMPRESSION: : No mammographic evidence of malignancy. BIRADS 1-Negative; N. 5 year breast cancer risk assessment 2.5 % Lifetime breast cancer risk assessment 12.4 % Breast cancer risk category Low (<15%) Danielle Evans MD IMG XR PROCEDURES * Cervical Cancer Screening: HPV (02/11/2013) Cervical Cancer Screening: HPV normal,abs tracted Historical Provider MD CHRISTIE Ordoñez * Hepatitis C Screening (08/30/2012) Hepatitis C Screening abstracted Historical Provider MD CHRISTIE Ordoñez from Last 3 Months or Most Recently Relevant to Health Maintenance Care Teams Assistant Activities Director Relationship Specialty Start Date End Date Danielle Evans MD [address] [place] [address] PCP - General 05/23/1997
== END 2024-05-20 12:01 | disposition home or self-care (01) ==
PROVIDERS: Visit Provider Physician Assistant
DX: S46.001A Unspecified injury of muscle(s) and tendon(s) of the rotator cuff of right shoulder, initial encounter (principal); W19.XXXA Unspecified fall, initial encounter
CPT/HCPCS: 99203; G2211

== ENCOUNTER → 2024-05-20 11:34 | Outpatient (BNVA) | payer MEDICARE, MEDICAID, SELFPAY | PROVIDERS: Visit Provider Physician Assistant | DX: S46.001A Unspecified injury of muscle(s) and tendon(s) of the rotator cuff of right shoulder, initial encounter (principal); M77.8 Other enthesopathies, not elsewhere classified; X58.XXXA Exposure to other specified factors, initial encounter; Y93.9 Activity, unspecified; Y92.9 Unspecified place or not applicable; Y99.9 Unspecified external cause status | CPT/HCPCS: 99202 ==

== ENCOUNTER 2024-06-25 12:56 | Outpatient (AMB) | payer MEDICARE, MEDICAID, SELFPAY ==
--- NOTE | 2024-06-25 12:57 | MHC.OFFVIS ---
Intake Visit Reasons: Tel- Right shoulder MRI review Intake Note: Emilee 64 yr old female presents today for a telehealth visit via a phone call for her right shoulder MRI review. Allergies hydrocodone [From VICODIN] Allergy (Mild, Verified 05/20/24 11:52) NAUSEA & VOMITING HPI HPI Tel- Right shoulder MRI review: Details: 64-year-old female presents today for a telehealth visit right shoulder MRI follow-up. She states she continues to have difficulty with daily activities considering the limitations of her right shoulder. [facility] Medical History Restless leg syndrome Surgical History History of total right knee replacement (~10/03/16) Previous section Social History Current occupational status: retired Current occupation: Right Handed Review of Systems Const All systems reviewed & are unremarkable except as noted in HPI and below Physical Exam Resp Effort & Inspection: normal respiratory effort and able to speak in complete sentences Telehealth Telehealth Telehealth Platform: Telephone Location of provider rendering services: practice address Location of patient: address on file Patient Identification confirmed using: Name, : Yes Telehealth method: voice only Patient verbally consented to treatment: Yes Patient verbally consented to billing insurance company: Yes Patient informed of any privacy concerns related to visit: Yes Results Reviewed Results Reviewed: Assessment & Plan Assessment & Plan (1) Injury of right rotator cuff: Code(s): S46.001A - Unspecified injury of muscle(s) and tendon(s) of the rotator cuff of right shoulder, initial encounter Category: Medical Plan: Discussed with the patient the extent of her MRI findings. I explained to the patient to the rotator cuff tear may be chronic in nature given the finding of atrophy. Given the amount limitation she is experiencing on a given day that impact her functional capacity I would like her to meet with Dr. Culp to discuss further surgical intervention. I explained to the patient this could be from a rotator cuff repair to a shoulder replacement but overall he would need to review the images with her to decide what the best option is for her going forward. Patient is content with this plan and all questions answered at this time. Coding Level of Care Code Tele Est Pt Level 3 (68721) Complex EM visit Add On G2211 Diagnoses Injury of right rotator cuff S46.001A
--- OUTSIDE RECORDS SUMMARY | 2024-06-25 15:30 | XMS_ITS | Clinical Summary ---
Author Organization [facility] Address [address] [place] [address] Care Team Providers Care Overnight Caregiver Name Role Phone Danielle Evans MD Primary Care Provider [phone] Allergies Active Allergy Reactions Criticality Noted Date Comments Hydrocodone-Acetaminophen 09/25/2015 Nausea, dizzy Medications bisacodyL (Dulcolax, bisacodyl,) 5 mg EC tablet Take 4 tabs by mouth right before beginning bowel prep. Follow instructions given by office for timing. 2 Active rOPINIRole (REQUIP) 2 mg tablet TAKE 2 TABLETS BY MOUTH AT BEDTIME 2 Active Active Problems Problem Noted Date Diagnosed [...] 6mo and older 01/22/2013,12/23/2011,01/06/2011,03/19,02/21/2008 Influenza, Unspecified 01/12/2015 [employer] SARS-CoV-2 COVID-19, mRNA, LNP-S, preservative free 05/26/2021 [...] repeat in ten years ESOPHAGOGASTRODUODENOSCOPY 05/11/10 PROCEDURE: MS ESOPHAGOGASTRODUODENOSCOPY TRANSORAL DIAGNOSTIC; COMMENT: normal Medical History [...] drink = 0.6 oz pur e alcohol) Comments Unknown Sex and Gender Information Value Date Recorded Sex Assigned at Not on file Legal Sex Female 4:01 PM EST Gender Identity Not on file Sexual Orientation [...] Vaccines (1 of 2) 2010 Pneumococcal Vaccine: 50+ Years (2 of 2 - PCV) 01/19/2013 01/20/2012 Pneumococcal Vaccine: Pediatrics (0 to 5 Years) [...] 05/26/2021, 08/07/2020, 07/15/2020 Influenza Vaccine (#1) 2023 2, 05/13/2021, 01/13/2020, Additional history exists Cholesterol Screening [...] patient's age to complete this topic Meningococcal B Vacine Aged Out No lo nger eligible based on patient's age to complete [...] 214(A) 0 - 200 mg/dL HDL 51 >=40 mg/dL LDL Cholesterol 144(A) 0 - 100 mg/dL Blood Venous blood specimen / Unknown us Historical Provider LAB BLOOD ORDERABLES Anupama l Result * SCR MAMMO BI INCL CAD (07/08/2020 [...] (<15%) Danielle Evans MD IMG XR PROCEDURES Final Result * Cervical Cancer Screening: HPV (02/11/2013) [facility] Cervical Cancer Screening: HPV normal,abs tracted Historical Provider HEALTH MAINTENANCE Final Result * Hepatitis C Screening (08/30/2012) [facility] Hepatitis C Screening abstracted Historical Provider HEALTH MAINTENANCE Final Result from Last 3 Months or Most Recently Relevant to Health Maintenance Care Teams Overnight Caregiver Relationship Specialty Start Date End Date Danielle Evans MD [address] [place] [id number] PCP - General 05/23/1997
== END 2024-06-25 13:09 | disposition home or self-care (01) ==
LOC: HO.HOS 12:56
PROVIDERS: Visit Provider Physician Assistant
DX: S46.001A Unspecified injury of muscle(s) and tendon(s) of the rotator cuff of right shoulder, initial encounter (principal)
CPT/HCPCS: 99213; G2211

== ENCOUNTER 2024-07-19 09:18 | Outpatient (AMB) | payer MEDICARE, MEDICAID, SELFPAY ==
--- NOTE | 2024-07-19 09:41 | A.OFFVIS_ITS ---
Intake Visit Reasons: OV - Right Shoulder - Discuss Surgery Intake Note: Emilee is a 64 year old right hand dominant female who present today for a follow up of her right shoulder. She was last seen with Niall where she reported a fall in April with increasing pain. Niall recommended that patient follow up to discuss surgical interventions. She does not take anything for her pain. Allergies hydrocodone [From VICODIN] Allergy (Mild, Verified 07/19/24 09:42) NAUSEA & VOMITING HPI HPI OV - Right Shoulder - Discuss Surgery: Details: Emilee is a 64 year old right hand dominant female who present today for a follow up of her right shoulder. She was last seen with Niall where she reported a fall in April with increasing pain. Niall recommended that patient follow up to discuss surgical interventions. She does not take anything for her pain. She has active and enjoys hiking. She states that she may have injured her shoulder years ago but that she re-injured it 3 months ago and since then has been really unable to abduct her shoulder without pain. MRI demonstrated a acute on chronic rotator cuff tear. She has done physical therapy with minimal benefit. [facility] Medical History Restless leg syndrome Surgical History History of total right knee replacement (~10/03/16) Previous section Social History Current occupational status: retired Current occupation: Right Handed Physical Exam Extrem Other: There is 4/5 empty can and full passive range of motion. Negative lift-off. Positive Leal and Neer. Results Reviewed Results Reviewed: I personally reviewed the MR images. MRI done at [facility]: 1. Extensive full-thickness tearing of the supraspinatus and infraspinatus tendons, as above. Mild to moderate fatty atrophy and volume loss of the superior infraspinatus muscle. 2. Moderate subscapularis tendinopathy with low-grade undersurface tearing along the distal insertion. 3. Moderate glenohumeral joint effusion with associated synovitis. 4. Moderate degenerative changes of the acromioclavicular joint. Assessment & Plan Assessment & Plan (1) Rotator cuff tear, right: Code(s): M75.101 - Unspecified rotator cuff tear or rupture of right shoulder, not specified as traumatic Category: Medical Plan: This is an active and healthy 64-year-old woman with a acute on chronic right rotator cuff tear. I reviewed her MRI with her and discussed treatment options. She has done activity modification, NSAIDs and physical therapy and continues to have difficulty using her arm with daily activities. She also has pain at night. I discussed the possibility of inability to repair of the rotator cuff and that intraoperatively we would make the final decision. She understands the possibilities of repair versus debridement and the expected recovery times. I discussed the risks, benefits and alternatives including, but not limited to, the risk of infection, stiffness, need for additional surgery as well as medical complications. She expressed understanding. All her questions were answered. Coding Level of Care Code Est Pt Level 4 (87994) Diagnoses Rotator cuff tear, right M75.101
--- OUTSIDE RECORDS SUMMARY | 2024-07-19 10:03 | XMS_ITS | Clinical Summary ---
Author Organization [facility] Address [address] [place] [address] Care Team Providers Care Merchandise Distributor Name Role Phone Danielle Evans MD Primary Care Provider [phone] Allergies Active Allergy Reactions Criticality Noted Date [...] 6mo and older 01/22/2013,12/23/2011,01/06/2011,03/19,02/21/2008 Influenza, Unspecified 01/12/2015 [employer] SARS-CoV-2 COVID-19, mRNA, LNP-S, preservative free 05/26/2021 [...] repeat in ten years ESOPHAGOGASTRODUODENOSCOPY 05/11/10 PROCEDURE: NM ESOPHAGOGASTRODUODENOSCOPY TRANSORAL DIAGNOSTIC; COMMENT: normal Medical History [...] Pap Smear 02/12/2016 02/11/2013, 02/11/2013 RSV Immunization Adult Patients (1 - Risk 60-74 years 1-dose series) 2020 Colorectal Cancer Screening: Colonoscopy 03/26/2022 Depression Screening 03/26/2022 HIV Screening 03/26/2022 Medicare Annual Wellness Visit 03/26/2022 Social Influencers of Health Screening 03/26/2022 Breast Cancer Screening 07/08/2022 07/08/2020, 07/06 COVID-19 Vaccine ( season) 2023 05/26/2021, 08/07/2020, 07/15/2020 Influenza Vaccine (Season Ended) 2024 12/30/2021, 05/13/2021, 01/13/2020, Additional history exists Cholesterol Screening [...] Result * Cervical Cancer Screening: HPV (02/11/2013) [facility] Cervical Cancer Screening: HPV normal,abs tracted Historical Provider HEALTH MAINTENANCE Final Result * Hepatitis C Screening (08/30/2012) [facility] Hepatitis C Screening abstracted Historical Provider HEALTH MAINTENANCE Final Result from Last 3 Months or Most Recently Relevant to Health Maintenance Care Teams Merchandise Distributor Relationship Specialty Start Date End Date Danielle Evans MD [address] [place] [id number] PCP - General 05/23/1997
== END 2024-07-19 10:07 | disposition home or self-care (01) ==
PROVIDERS: Visit Provider Orthopaedic Surgery
DX: M75.101 Unspecified rotator cuff tear or rupture of right shoulder, not specified as traumatic (principal)
CPT/HCPCS: 99214

== ENCOUNTER → 2024-07-19 09:18 | Outpatient (BNVA) | payer MEDICARE, MEDICAID, SELFPAY | PROVIDERS: Visit Provider Orthopaedic Surgery | DX: M75.101 Unspecified rotator cuff tear or rupture of right shoulder, not specified as traumatic (principal) | CPT/HCPCS: 99212 ==

== ENCOUNTER 2024-08-22 14:05 | Outpatient (AMB) | payer MEDICARE, MEDICAID, SELFPAY ==
--- NOTE | 2024-08-22 14:24 | A.OFFVIS_ITS ---
Vital Signs 08/22/24 14:35 Height 5 ft 7 in Weight 242 lb BMI 37.9 Intake Visit Reasons: Preop RT RTC 08/28/24 NE Intake Note: Emilee is a 64 year old right hand dominant female who presents today for a pre operative appointment for her right shoulder RTC 08/28/24 NE. Patient was given pain management form and pendulum exercises form and what to look out for after surgery. Allergies hydrocodone [From VICODIN] Allergy (Mild, Verified 08/22/24 14:35) NAUSEA & VOMITING HPI HPI Preop RT RTC 08/28/24 NE: Details: Ms. Cortes is a 64-year-old female who presents to the office today for her history and physical examination prior to right shoulder rotator cuff repair tentatively scheduled on 08/28/[address] Culp. [facility] Medical History Restless leg syndrome Surgical History History of total right knee replacement (~10/03/16) Previous section Social History Current occupational status: retired Current occupation: Right Handed Review of Systems Const All systems reviewed & are unremarkable except as noted in HPI and below Physical Exam Extrem Other: There is 4/5 empty can and full passive range of motion. Negative lift-off. Positive Leal and Neer. Assessment & Plan Assessment & Plan (1) Rotator cuff tear, right: Code(s): M75.101 - Unspecified rotator cuff tear or rupture of right shoulder, not specified as traumatic Category: Medical Plan I discussed in detail the procedure and what to expect pre and post operatively. We discussed the risks, benefits and alternatives to the surgery as well as the rehabilitation course. The risks; which include, but are not limited to infection, bleeding, nerve injury, ongoing pain, swelling, and stiffness, perioperative risk of injury to bones and soft tissues, and blood clots. Post operative medications were sent to the pharmacy, [facility], while in the office today. The patient was instructed that he/she should obtain the prescription prior to surgery but should not consume until after the procedure; as these should only be taken for postoperative pain management. Should the patient take these medications before surgery, a refill will not be sent to the pharmacy until their scheduled refill date. Patient was also fitted for an abduction sling while in the office today off the shelf. This will be brought on the day of surgery. oxycodone-acetaminophen 5-325 mg (Percocet) PO Q4-6H PRN, quantity 42 tabs for 7 days and morphine ER 15 mg (MS Contin) PO Q12H PRN, quantity 6 tabs for 3 days I?ve answered all questions and with their understanding they have consented to move forward with right shoulder rotator cuff repair with Dr. Culp. Orders: Orders PT Evaluation and Treatment Today M75.101 - Unspecified rotator cuff tear or rupture of right shoulder, not specified as traumatic Medications: New morphine ER (MS Contin) Partial Fill upon patient request. 15 mg PO Q12H 3 days 6 tabs 0RF ondansetron 8 mg PO BID 4 days PRN 8 tabs 0RF nausea and vomiting oxycodone-acetaminophen 5-325 mg Partial Fill upon patient request. 1 tab PO Q4-6H 7 days PRN 42 tabs 0RF pain Coding Level of Care Code Global (80060) Diagnoses Rotator cuff tear, right M75.101
[2024-08-22 14:35] VITALS: BMI 37.9
--- OUTSIDE RECORDS SUMMARY | 2024-08-22 14:58 | XMS_ITS | Clinical Summary ---
Author Organization [facility] Address [address] [place] [address] Care Team Providers Care [employer] Name Role Phone Danielle Evans MD Primary Care Provider [phone] Allergies Active Allergy Reactions Criticality Noted Date [...] or abscess without bleeding 09/25/2015 Chronic obstructive pulmonar y disease ([facility] V24, [facility] V28) 05/09/2015 IBS (irritable bowel syndrome) 01/23/2015 Obesity, morbid (more than 1 00 lbs over ideal weight or BMI > 40) ([facility] V24, [facility] V28) 08/20/2013 Seizures ([facility] V24, [facility] V28) 10/22/2012 Chronic pain 12/07/2010 Fatty liver 07/07/2010 Elevated alkaline phosphatase level 05/17/2010 Sleep apnea 12/10/2009 Hyperlipidemia 12/29/2008 Depression 07/01/2008 DJD (degenerative joint disease), lumbar 009 Restless leg syndrome 04/22/2008 Immunizations Name Administration Dates Next Due Influenza Quadravalent, MDCK , 0.5ml, preservative free (Flucelvax) 6mo and older 12/30/2021,05/13/2021,01/13/2020,05/03,05/01/2018 Influenza trivalent, with pr eservative (Fluzone; Afluria) 6mo and older 01/22/2013,12/23/2011,01/06/2011,03/19,02/21/2008 Influenza, Unspecified 01/12/2015 [employer] SARS-CoV-2 COVID-19, mRNA, LNP-S, preservative free 05/26/2021 [...] repeat in ten years ESOPHAGOGASTRODUODENOSCOPY 05/11/10 PROCEDURE: [place] ESOPHAGOGASTRODUODENOSCOPY TRANSORAL DIAGNOSTIC; COMMENT: normal Medical History Medical History Date Comments Historical Medical DX 01/10/2008 DX:COPD Restless leg syndrome DX:Restles s leg syndrome Back pain DX:Back pain Obesity DX:Obesity Depression DX:Depression Hyperlipemia DX:Hyperlipemia Fatty liver 07/07/2010 DX:Fatty liver Abdominal pain 02/07/2011 DX:Abdominal dennise n Diverticulitis 05/24/11, sigmoid DX:Diverticuliti s Seizures (CMS/HCC V24, CMS/HCC V28) 11/2012 DX:Seizures ([facility]); COMMENT: Dr Casey Family History Medical History [...] age to complete this topic Meningococcal B Vaccine Aged Out No l onger eligible based on patient's age to complete [...] specimen / Unknown Historical Provider LAB BLOOD ORDERABLES Anupama l [...] % Breast cancer risk category Low (<15%) Result [facility] Danielle Evans MD IMG XR PROCEDURES Final Result * Cervical Cancer Screening: HPV (02/11/2013) Cervical Cancer Screening: HPV normal,abs tracted Historical Provider HEALTH MAINTENANCE Final Result * Hepatitis C Screening (08/30/2012) Pathologist [facility] Hepatitis C Screening abstracted Result [facility] Historical Provider HEALTH MAINTENANCE Final Result from Last 3 Months or Most Recently Relevant to Health Maintenance Care Teams [employer] Relationship Specialty Start Date End Date Danielle Evans MD [address] [place] [address] PCP - General 05/23/1997
== END 2024-08-22 14:41 | disposition home or self-care (01) ==
LOC: HO.HOS 14:06
PROVIDERS: PCP Internal Medicine; Visit Provider Physician Assistant
DX: M75.101 Unspecified rotator cuff tear or rupture of right shoulder, not specified as traumatic (principal)
CPT/HCPCS: 99024

== ENCOUNTER → 2024-08-22 14:05 | Outpatient (BNVA) | payer MEDICARE, MEDICAID, SELFPAY | END | disposition home or self-care (01) | PROVIDERS: PCP Internal Medicine; Visit Provider Physician Assistant | DX: Z01.818 Encounter for other preprocedural examination (principal); M75.101 Unspecified rotator cuff tear or rupture of right shoulder, not specified as traumatic | CPT/HCPCS: 99212 ==

== ENCOUNTER 2024-08-28 06:05 | Day surgery (SDC) | payer MEDICARE, MEDICAID, SELFPAY ==
[2024-08-23 15:36] VITALS: BMI 37.9
--- OUTSIDE RECORDS SUMMARY | 2024-08-28 06:07 | XMS_ITS | Clinical Summary ---
Author Organization [facility] Address [address] [place] [address] Care Team Providers Care Weapons Engineer Name Role Phone Danielle Evans MD Primary Care Provider [phone] Allergies Active Allergy Reactions Criticality Noted Date [...] pulmonar y disease ([facility] V24, [facility] V28) 05/09/2015 IBS (irritable bowel syndrome) 01/23/2015 Obesity, morbid (more than 1 00 lbs over ideal weight or BMI > 40) ([facility] V24, [facility] V28) 08/20/2013 Seizures ([facility] V24, [facility] V28) 10/22/2012 Chronic pain 12/07/2010 Fatty liver 07/07/2010 Elevated alkaline phosphatase level 05/17/2010 Sleep apnea 12/10/2009 Hyperlipidemia 12/29/2008 Depression 07/01/2008 DJD (degenerative joint disease), lumbar 009 Restless leg syndrome 04/22/2008 Immunizations Name Administration Dates Next Due Influenza Quadravalent, MDCK , 0.5ml, preservative free (Flucelvax) 6mo and older 12/30/2021,05/13/2021,01/13/2020,05/03,05/01/2018 Influenza trivalent, with pr eservative (Fluzone; Afluria) 6mo and older 01/22/2013,12/23/2011,01/06/2011,03/19,02/21/2008 Influenza, Unspecified 01/12/2015 [employer] SARS-CoV-2 COVID-19, mRNA, LNP-S, preservative free 05/26/2021 [...] repeat in ten years ESOPHAGOGASTRODUODENOSCOPY 05/11/10 PROCEDURE: [place] ESOPHAGOGASTRODUODENOSCOPY TRANSORAL DIAGNOSTIC; COMMENT: normal Medical History Medical History Date Comments Historical Medical DX 01/10/2008 DX:COPD Restless leg syndrome DX:Restles s leg syndrome Back pain DX:Back pain Obesity DX:Obesity Depression DX:Depression Hyperlipemia DX:Hyperlipemia Fatty liver 07/07/2010 DX:Fatty liver Abdominal pain 02/07/2011 DX:Abdominal dennise n Diverticulitis 05/24/11, sigmoid DX:Diverticuliti s Seizures (CMS/HCC V24, CMS/HCC V28) 11/2012 DX:Seizures ([facility]); COMMENT: Dr Casey Family History Medical History [...] Breast cancer risk category Low (<15%) Result [facility] Danielle Evans MD IMG XR PROCEDURES Final Result * Cervical Cancer Screening: HPV (02/11/2013) Cervical Cancer Screening: HPV normal,abs tracted Historical Provider HEALTH MAINTENANCE Final Result * Hepatitis C Screening (08/30/2012) Pathologist [facility] Hepatitis C Screening abstracted Result [facility] Historical Provider HEALTH MAINTENANCE Final Result from Last 3 Months or Most Recently Relevant to Health Maintenance Care Teams Weapons Engineer Relationship Specialty Start Date End Date Danielle Evans MD [address] [place] [address] PCP - General 05/23/1997
[2024-08-28 06:12] VITALS: BMI 38.1
[2024-08-28 06:25] VITALS: BP 142/86; PULSE 83; RESP 18; TEMP 36.5; O2SAT 95
[2024-08-28] MEDS: Lactated Ringers 1,000 ML 80 ML IVCONT (06:42)
--- NOTE | 2024-08-28 07:24 | MHC.SHP ---
Pre-Procedural Eval Section A - 24 Hr Update-Section A only Date of Service: 08/28/24 The patient is an INPATIENT: No Changes since office visit: No Cold of Flu in the past 2 weeks, No New Medical Problems, No Changes in Medication and No Patient answered all questions The patient has been examined within 24 hours of the surgical procedure. The History & Physical has been completed within 30 days and I have reviewed it.: Yes Section B - Complete if H&P > 30 days Chief Complaint: Complete rotator cuff tear or rupture of right liang Allergies: Allergies Allergy/AdvReac Type Severity Reaction Status Date / Time hydrocodone [From VICODIN] Allergy Mild NAUSEA & Verified 08/22/24 14:35 VOMITING Plan I have reviewed the history and physical and performed a pertinent physical examination on my patient. No changes have occurred unless specified. Time Spent With Patient Time: Total time managing care of this patient today ____ minutes.
[2024-08-28] MEDS: ceFAZolin Sodium/Dextrose,Iso 2 GM/50 ML PIGGYBACK IV (07:55)
--- NOTE | 2024-08-28 08:30 | P.CONAN_ITS ---
HPI - Anesthesia Eval Consult details Narrative: left tkr PMFSH Active Problems Active Problems: All Active Problems (Updated 08/27/24 @ 08:44 by Autumn Babin NP) Rotator cuff tear, right (Acute) Injury of right rotator cuff (Acute) Past Medical History Medical History KASEY (generalized anxiety disorder) Fibromyalgia NAFLD (nonalcoholic fatty liver disease) Obesity VICKY (obstructive sleep apnea) COPD (chronic obstructive pulmonary disease) HTN (hypertension) Restless leg syndrome Family History Family history of problems with anesthesia: No Surgical History Surgical History History of total right knee replacement (~10/03/16) Previous section History of Problems with Anesthesia: No Social History Social History Are you a primary resident care supervisor to a significant other at home: No Do you presently have visiting nurse or other home services: No Patient Tobacco Use Status: Former Tobacco user Second Hand Smoke Exposure: No Use of substances other than those prescribed or required for medical reasons: No Have you been hit, kicked, punched, or otherwise hurt by someone within the past year? 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 Allergies Allergy/AdvReac Type Severity Reaction Status Date / Time hydrocodone [From VICODIN] Allergy Mild NAUSEA & Verified 08/22/24 14:35 VOMITING Active Medications: Current Medications Lactated Ringer's (Lr) 1,000 mls @ 80 mls/hr IVCONT .[id number] VALERIO Last Admin: 08/28/24 06:42 Dose: 80 mls/hr Naloxone HCl (Naloxone Hcl 0.4 Mg/Ml Vial) 0.04 mg IVPUSH Q5M PRN PRN Reason: Excessive sedation or RR < 8 Ondansetron HCl (Ondansetron Hcl 4 Mg/2 Ml Vial) 4 mg IVPUSH ONCE PRN PRN Reason: Nausea and Vomiting Stop: 08/28/24 14:29 Home Medications ?Medication ?Instructions ?Recorded ?Confirmed ?Last Taken ?Type ropinirole 2 mg tablet 2 mg PO DAILY 03/27/20 05/20/24 Unknown History duloxetine 60 mg capsule,delayed 60 mg PO DAILY 05/20/24 05/20/24 Unknown History release ipratropium 20 mcg-albuterol 100 1 puff inhalation QID 05/20/24 05/20/24 Unknown History mcg/actuation mist for inhalation (Combivent Respimat) lansoprazole 15 mg capsule,delayed 15 mg PO 05/20/24 05/20/24 Unknown History release meloxicam 15 mg tablet 15 mg PO DAILY PRN pain 05/20/24 05/20/24 Unknown History Exam Height,Weight and Vital Signs: Height 5 ft 7 in Weight 110.223 kg Last Vital Signs Temp 97.7 F 08/28/24 06:25 Pulse 83 08/28/24 06:25 Resp 18 08/28/24 06:25 BP 142/86 H 08/28/24 06:25 Pulse Ox 95 08/28/24 06:25 O2 Del Method Room Air 08/28/24 06:25 Airway Mallampati Class: II TM Dist: >3cm Neck ROM: Limited Heart: rrr Lungs: cta Assessment and Plan Assessment Anesthesia Assessment: Anesthesia Plan Discussed and Chart Reviewed Final Anesthetic Review Family History of Problems with Anesthesia: No History of Problems with Anesthesia: No NPO: Yes ASA Class: III Final Preanesthetic Review: No Changes in Pt Med Stat, Meds/Allgs Chart Reviewed, Consent Obtained/Reviewed and Anes Risks/Benef Reviewed Patient Risk: Intermediate Procedure Risk: Intermediate Anesthetic Plan Anesthetic Plan: GA, Regional Block and Agree w/ Assess. and Plan Disposition: Standard PACU
[2024-08-28 09:20] VITALS: BP 118/59; PULSE 61; RESP 18; TEMP 36.2; O2SAT 98
[2024-08-28 09:25] VITALS: BP 111/58; PULSE 61; RESP 18; O2SAT 98
[2024-08-28 09:30] VITALS: BP 107/58; PULSE 58; RESP 18; O2SAT 97
[2024-08-28 09:35] VITALS: BP 117/59; PULSE 58; RESP 18; O2SAT 97
[2024-08-28 09:50] VITALS: BP 101/57; PULSE 62; RESP 18; TEMP 32.2; O2SAT 95
--- NOTE | 2024-08-28 10:32 | PC.NURSE ---
PATIENT ALREADY HAS PRESCRIPTIONS AT HOME.
--- NOTE | 2024-08-28 10:55 | PM.OP ---
Brief Operative Note Date of Service: 08/28/24 Pre-op diagnosis: Right RTC tear Post-op diagnosis: same Procedure: Right RTC repair Implants: S&N 4.75 double loaded medial row x 2 ; 5.5 lateral row knotless x 2; large Regeneten collagen bioinductive patch Surgeon: Torin Culp MD Anesthesia: GETA and regional Was an Keeler Polygraph Operator used for this Procedure?: Yes Keeler Polygraph Operator: Ayse Camarillo Estimated blood loss (mL): 20 IV fluids (mL): 850 Pathology: none sent Condition: stable Disposition: PACU
--- NOTE | 2024-08-29 09:00 | W.PM.OPN ---
Operative Note Operative Note Date of Service: 08/28/24 Narrative: Date of Service: 08/28/24 Pre-op diagnosis: Right RTC tear Post-op diagnosis: same Procedure: Right RTC repair Implants: S&N 4.75 double loaded medial row x 2 ; 5.5 lateral row knotless x 2; large Regeneten collagen bioinductive patch Surgeon: Torin Culp MD Anesthesia: GETA and regional Was an Retail Financial Analyst used for this Procedure?: Yes Retail Financial Analyst: Ayse Camarillo Estimated blood loss (mL): 20 IV fluids (mL): 850 Pathology: none sent Condition: stable Disposition: PACU Procedure in detail: Patient was brought to the operating room and placed the the beach chair position. All bony prominences were well padded and the limb was prepped and draped in standard sterile fashion. A time out was called to identify proper site, proper procedure and proper surgeon. IV antibiotics per weight were administered. I began by making a posterolateral stab incision with a 15 blade. A blunt trochar was placed into the glenohumeral joint and I insufflated the joint with saline and a 30 degree arthroscope was placed. I established an outside- in anterior portal just distal to the biceps tendon. I then began my inspection of the glenohumeral joint. There was a large degenerative SLAP tear at the biceps anchor. There were minimal cartilage changes at the inferior glenoid without humeral head changes. There was a full thickness undersurface RTC tear. The subcapularis was intact. I debrided the loose cartilage of the glenoid and the degenerative labral tearing and performed a biceps tenotomy. I then removed the trochar and entered the subacromial space. A direct lateral portal was then established and I performed a bursectomy. The cuff was then examined. There was a full thickness tear of the supra and infraspinatus with retraction. The tear was mobile. I placed two medial row double loaded anchors after using a tap just adjacent to the articular cartilage and then brought the suture limbs ( 8) through the medial cuff. I then debrided the bare area down to bleeding bone and, using a cross bridge configuration, brought 4 limbs to each of two lateral 5.0 anchors. This re-approximated the cuff anatomy anatomically. Given her age and the severity of the tear a large Regeneten collagen bio inductive patch was placed. This was introduced via lateral portal and held in place with 6 pink wes and 2 lateral bone anchors. Once I was satisfied with the repair final images were captured and I removed all instrumentation. Portals were closed with nylon. Patient was placed in an abduction sling, extubated and brought to the recovery room in stable condition. There were no known complications.
== END 2024-08-28 10:32 | disposition home or self-care (01) ==
PROVIDERS: Visit Provider Orthopaedic Surgery
PROC: (CPT 29827; principal; 2024-08-28 07:30)
DX: M75.121 Complete rotator cuff tear or rupture of right shoulder, not specified as traumatic (principal); S43.431A Superior glenoid labrum lesion of right shoulder, initial encounter; X58.XXXA Exposure to other specified factors, initial encounter; Y93.9 Activity, unspecified; Y92.9 Unspecified place or not applicable; Y99.9 Unspecified external cause status; M79.7 Fibromyalgia; I10 Essential (primary) hypertension; K76.0 Fatty (change of) liver, not elsewhere classified; J44.9 Chronic obstructive pulmonary disease, unspecified; F41.1 Generalized anxiety disorder; E66.01 Morbid (severe) obesity due to excess calories; Z68.35 Body mass index [BMI] 35.0-35.9, adult; E78.5 Hyperlipidemia, unspecified; G25.81 Restless legs syndrome; G47.33 Obstructive sleep apnea (adult) (pediatric); Z79.51 Long term (current) use of inhaled steroids; Z79.899 Other long term (current) drug therapy; Z99.89 Dependence on other enabling machines and devices; Z88.5 Allergy status to narcotic agent; Z96.651 Presence of right artificial knee joint; Z87.891 Personal history of nicotine dependence
CPT/HCPCS: 29827; 29822; C1713; C1763; J0131; J0171; J0665; J0690; J1100; J2003; J2250; J2371; J2405; J2704; J3010

== ENCOUNTER → 2024-08-28 06:05 | Outpatient (BNV) | payer MEDICARE, MEDICAID, SELFPAY | PROVIDERS: Visit Provider Orthopaedic Surgery | DX: S46.011A Strain of muscle(s) and tendon(s) of the rotator cuff of right shoulder, initial encounter (principal); S43.431A Superior glenoid labrum lesion of right shoulder, initial encounter | CPT/HCPCS: 29827 ==

== ENCOUNTER 2024-09-05 13:26 | Outpatient (AMB) | payer MEDICARE, MEDICAID, SELFPAY ==
--- NOTE | 2024-09-05 13:32 | MHC.OFFVIS ---
Intake Visit Reasons: PO RT RTC 08/28/24 NE Intake Note: Emilee is a 64 year old female who presents today for a post operative appointment for her right shoulder rotator cuff repair 08/28/24 NE. Patient reports she is doing well and pain is very mild. Allergies hydrocodone [From VICODIN] Allergy (Mild, Verified 09/05/24 13:37) NAUSEA & VOMITING HPI HPI PO RT RTC 08/28/24 NE: Details: Ms. Cortes this is a 64-year-old female who presents to the office today status post right shoulder rotator cuff repair with collagen patch performed on 08/28/[address] Culp. Patient presents to the office today in the abduction sling as appropriate. Pain is well controlled at this time. She does not have any physical therapy appointment scheduled at this time. [facility] Medical History KASEY (generalized anxiety disorder) Fibromyalgia NAFLD (nonalcoholic fatty liver disease) Obesity VICKY (obstructive sleep apnea) COPD (chronic obstructive pulmonary disease) HTN (hypertension) Restless leg syndrome Surgical History History of total right knee replacement (~10/03/16) Previous section Social History Are you a primary field care coordinator to a significant other at home: No Do you presently have visiting nurse or other home services: No Patient Tobacco Use Status: Former Tobacco user Second Hand Smoke Exposure: No Current occupational status: retired Current occupation: Right Handed Review of Systems Const All systems reviewed & are unremarkable except as noted in HPI and below Physical Exam Const General: cooperative, healthy appearing and no acute distress Resp Effort & Inspection: normal respiratory effort and able to speak in complete sentences Extrem Other: Right shoulder incision sites are clean dry and intact. No surrounding erythema or drainage. No signs of infection. Yung intact. 45 degrees forward flexion abduction. External rotation to neutral. NVI. Assessment & Plan Assessment & Plan (1) Status post right rotator cuff repair: Code(s): Z98.890 - Other specified postprocedural states Category: Surgical Plan Ms. Cortes this is a 64-year-old female who presents to the office today status post right shoulder rotator cuff repair with collagen patch performed on 08/28/[address] Culp. Patient presents to the office today in the abduction sling as appropriate. Pain is well controlled at this time. She does not have any physical therapy appointment scheduled at this time. While the office today yung were removed and Steri-Strips were applied. I gave me information for our core therapy office for the patient to reach out to make appointments immediately. In the meantime while she is waiting for an appointment she will continue doing the pendulum exercises that were demonstrated to her and a handout was provided to her at her preoperative appointment. She understands and accepts. Additionally, the patient reports that she is concerned with her grandson not being able to attend school during the time that she is in a sling because she is not able to drive. I did provide her with a note to the school stating that her grandson has multiple psychological disabilities and would benefit from pickup at home and drop off at home for safe transportation to school. This would be roughly for a 6 weeks from her postoperative date until she is released from wearing a sling. She will follow up in [address] Culp, sooner if needed. Coding Level of Care Code Global (47075) Diagnoses Status post right rotator cuff repair Z98.890
--- OUTSIDE RECORDS SUMMARY | 2024-09-05 13:33 | XMS_ITS | Clinical Summary ---
Author Organization [facility] Address [address] [place] [address] Care Team Providers Care Ophthalmic Technician Apprentice Name Role Phone Danielle Evans MD Primary Care Provider [phone] Allergies Active Allergy Reactions Criticality Noted Date [...] bleeding 09/25/2015 Chronic obstructive pulmonar y disease ([facility] V24, [facility] V28) 05/09/2015 IBS (irritable bowel syndrome) 01/23/2015 Obesity, morbid (more than 1 00 lbs over ideal weight or BMI > 40) ([facility] V24, [facility] V28) 08/20/2013 Seizures ([facility] V24, [facility] V28) 10/22/2012 Chronic pain 12/07/2010 Fatty liver 07/07/2010 Elevated alkaline phosphatase level 05/17/2010 Sleep apnea 12/10/2009 Hyperlipidemia 12/29/2008 Depression 07/01/2008 DJD (degenerative joint disease), lumbar 009 Restless leg syndrome 04/22/2008 Immunizations Name Administration Dates Next Due Influenza Quadravalent, MDCK , 0.5ml, preservative free (Flucelvax) 6mo and older 12/30/2021,05/13/2021,01/13/2020,05/03,05/01/2018 Influenza trivalent, with pr eservative (Fluzone; Afluria) 6mo and older 01/22/2013,12/23/2011,01/06/2011,03/19,02/21/2008 Influenza, Unspecified 01/12/2015 [employer] SARS-CoV-2 COVID-19, mRNA, LNP-S, preservative free 05/26/2021 [...] repeat in ten years ESOPHAGOGASTRODUODENOSCOPY 05/11/10 PROCEDURE: [place] ESOPHAGOGASTRODUODENOSCOPY TRANSORAL DIAGNOSTIC; COMMENT: normal Medical History Medical History Date Comments Historical Medical DX 01/10/2008 DX:COPD Restless leg syndrome DX:Restles s leg syndrome Back pain DX:Back pain Obesity DX:Obesity Depression DX:Depression Hyperlipemia DX:Hyperlipemia Fatty liver 07/07/2010 DX:Fatty liver Abdominal pain 02/07/2011 DX:Abdominal dennise n Diverticulitis 05/24/11, sigmoid DX:Diverticuliti s Seizures (CMS/HCC V24, CMS/HCC V28) 11/2012 DX:Seizures ([facility]); COMMENT: Dr Casey Family History Medical History [...] Breast cancer risk category Low (<15%) Result [facility] Danielle Evans MD IMG XR PROCEDURES Final Result * Cervical Cancer Screening: HPV (02/11/2013) Cervical Cancer Screening: HPV normal,abs tracted Historical Provider HEALTH MAINTENANCE Final Result * Hepatitis C Screening (08/30/2012) Pathologist [facility] Hepatitis C Screening abstracted Result [facility] Historical Provider HEALTH MAINTENANCE Final Result from Last 3 Months or Most Recently Relevant to Health Maintenance Care Teams Ophthalmic Technician Apprentice Relationship Specialty Start Date End Date Danielle Evans MD [address] [place] [address] PCP - General 05/23/1997
== END 2024-09-05 14:12 | disposition home or self-care (01) ==
LOC: HO.HOS 13:27
PROVIDERS: PCP Internal Medicine; Visit Provider Physician Assistant
DX: Z98.890 Other specified postprocedural states (principal)
CPT/HCPCS: 99024

== ENCOUNTER → 2024-09-05 13:26 | Outpatient (BNVA) | payer MEDICARE, MEDICAID, SELFPAY | PROVIDERS: PCP Internal Medicine; Visit Provider Physician Assistant | DX: Z47.89 Encounter for other orthopedic aftercare (principal); Z98.890 Other specified postprocedural states | CPT/HCPCS: 99212 ==

== ENCOUNTER 2024-10-10 08:32 | Outpatient (AMB) | payer MEDICARE, MEDICAID, SELFPAY ==
--- NOTE | 2024-10-10 08:56 | MHC.OFFVIS ---
Vital Signs 10/10/24 08:57 Height 5 ft 7 in Weight 238 lb BMI 37.3 Intake Visit Reasons: PO-PO RT RTC 08/28/24 NE Intake Note: Emilee is a 64 year old right hand dominant female who presents today for a post operative appointment about one month s/p Right RTC Repair s/p 08/29/24. Patient reprts that she is having pain in the right shoulder. She reports thati she tripped and hit her shoulder on the refrigerator. Since then she has had some increased pain. Denies numbness and tingling. She is taking the Oxycodone for her pain. Allergies hydrocodone (From VICODIN) Allergy (Mild, Verified 09/05/24 13:37) NAUSEA & VOMITING HPI HPI PO-PO RT RTC 08/28/24 NE: Details: Emilee is a 64 year old right hand dominant female who presents today for a post operative appointment about one month s/p Right RTC Repair s/p 08/29/24. Patient reports that she is having pain in the right shoulder. She reports that she tripped and hit her shoulder on the refrigerator. Since then she has had some increased pain. Denies numbness and tingling. She is taking the Oxycodone for her pain. [facility] Medical History KASEY (generalized anxiety disorder) Fibromyalgia NAFLD (nonalcoholic fatty liver disease) Obesity VICKY (obstructive sleep apnea) COPD (chronic obstructive pulmonary disease) HTN (hypertension) Restless leg syndrome Surgical History History of total right knee replacement (~10/03/16) Previous section Social History Are you a primary manager home healthcare to a significant other at home: No Do you presently have visiting nurse or other home services: No Patient Tobacco Use Status: Former Tobacco user Second Hand Smoke Exposure: No Current occupational status: retired Current occupation: Right Handed Physical Exam Vital Signs: BMI result Body Mass Index 37.3 Extrem Other: Portals clean dry and intact External rotation to 20 degrees Active abduction to 60 with recruitment NVI Assessment & Plan Assessment & Plan (1) Status post right rotator cuff repair: Code(s): Z98.890 - Other specified postprocedural states Category: Surgical Plan: Leandro Harkins is a 64-year-old woman 6 weeks status post large rotator cuff repair. She is doing well. I reassured her and recommend she continue physical therapy. Please follow up in 6 weeks. Large repair protocol. May discontinue sling. Plan Follow up in 6 weeks with [facility] [place] Coding Level of Care Code Global (26767) Diagnoses Status post right rotator cuff repair Z98.890
--- OUTSIDE RECORDS SUMMARY | 2024-10-10 08:56 | XMS_ITS | Clinical Summary ---
Author Organization [facility] Address [address] [place] [address] Care Team Providers Care Lithographic Plate Maker Name Role Phone Danielle Evans MD Primary Care Provider [phone] Allergies Active Allergy Reactions Criticality Noted Date [...] bleeding 09/25/2015 Chronic obstructive pulmonar y disease ([facility] V24, [facility] V28) 05/09/2015 IBS (irritable bowel syndrome) 01/23/2015 Obesity, morbid (more than 1 00 lbs over ideal weight or BMI > 40) ([facility] V24, [facility] V28) 08/20/2013 Seizures ([facility] V24, [facility] V28) 10/22/2012 Chronic pain 12/07/2010 Fatty liver 07/07/2010 Elevated alkaline phosphatase level 05/17/2010 Sleep apnea 12/10/2009 Hyperlipidemia 12/29/2008 Depression 07/01/2008 DJD (degenerative joint disease), lumbar 009 Restless leg syndrome 04/22/2008 Immunizations Name Administration Dates Next Due Influenza Quadravalent, MDCK , 0.5ml, preservative free (Flucelvax) 6mo and older 12/30/2021,05/13/2021,01/13/2020,05/03,05/01/2018 Influenza trivalent, with pr eservative (Fluzone; Afluria) 6mo and older 01/22/2013,12/23/2011,01/06/2011,03/19,02/21/2008 Influenza, Unspecified 01/12/2015 NanoViricides SARS-CoV-2 COVID-19, mRNA, LNP-S, preservative free 05/26/2021 [...] repeat in ten years ESOPHAGOGASTRODUODENOSCOPY 05/11/10 PROCEDURE: [place] ESOPHAGOGASTRODUODENOSCOPY TRANSORAL DIAGNOSTIC; COMMENT: normal Medical History Medical History Date Comments Historical Medical DX 01/10/2008 DX:COPD Restless leg syndrome DX:Restles s leg syndrome Back pain DX:Back pain Obesity DX:Obesity Depression DX:Depression Hyperlipemia DX:Hyperlipemia Fatty liver 07/07/2010 DX:Fatty liver Abdominal pain 02/07/2011 DX:Abdominal dennise n Diverticulitis 05/24/11, sigmoid DX:Diverticuliti s Seizures (CMS/HCC V24, CMS/HCC V28) 11/2012 DX:Seizures ([facility]); COMMENT: Dr Casey Family History Medical History [...] reviewed with CAD and compared to previous. The breasts are composed of fatty and fibroglandular tissue. No suspicious mass, architectural distortion or suspicious calcifications [...] Result * Hepatitis C Screening (08/30/2012) Pathologist [facility] Hepatitis C Screening abstracted Historical Provider HEALTH MAINTENANCE Final Result from Last 3 Months or Most Recently Relevant to Health Maintenance Care Teams Lithographic Plate Maker Relationship Specialty Start Date End Date Danielle Evans MD [address] [place] [address] PCP - General 05/23/1997
[2024-10-10 08:57] VITALS: BMI 37.3
== END 2024-10-10 09:35 | disposition home or self-care (01) ==
LOC: HO.HOS 08:33
PROVIDERS: PCP Internal Medicine; Visit Provider Orthopaedic Surgery
DX: Z98.890 Other specified postprocedural states (principal)
CPT/HCPCS: 99024

== ENCOUNTER → 2024-10-10 08:32 | Outpatient (BNVA) | payer MEDICARE, MEDICAID, SELFPAY | PROVIDERS: PCP Internal Medicine; Visit Provider Orthopaedic Surgery | DX: Z47.89 Encounter for other orthopedic aftercare (principal); Z98.890 Other specified postprocedural states | CPT/HCPCS: 99212 ==

== ENCOUNTER 2024-11-04 10:00 | Outpatient (RCR) | payer MEDICARE, MEDICAID, SELFPAY ==
--- NOTE | 2024-10-03 13:36 | MHC.PT.EP ---
[facility] [place] Office [place] Office [place] Office [address] John Villavicencio [address] [phone] F: [phone] F: [phone] F: [phone] F: [phone] Physical Therapy Plan of Care Date of Evaluation: 10/03/24 Date of Surgery: 08/28/2024 Diagnosis: s/p RC repair R 08/28/2024 Assessment: Patient is a 64 year old female presenting to PT s/p R RC repair on 08/28/2024. She presents today with impairments in pain, ROM, shoulder strength, posture, protocol limitations. Pt's current occupation is none, with baseline physical activities including reaching, lifting, ADLs. Pt expresses senior living goal of returning to PLOF, and is motivated to work towards this in PT. Clinical presentation today is most consistent with signs and sx associated with R RC repair on 08/28/2024 and pt will benefit from skilled PT 2 week x 8 weeks to address the following problems and impairments noted upon evaluation: pain, ROM, shoulder strength, posture, protocol limitations. These problems limit the patient with the following functional activities: reaching, lifting, ADLs. The prescribed treatment plan of care is medically necessary. Co-morbidities of fibromyalgia, epilepsy were identified and taken into considerations of plan of care. Pt was educated on HEP, role of PT, prognosis, POC. Frequency and Duration: The patient will be seen 2 x week x 8 weeks Short Term Goals: Pt will demonstrate ROM equal B in 4 weeks. Pt will demonstrate R shoulder MMT strength at least 3+/5 in 4 weeks. Chcf Goals: Pt will demonstrate improved SPADI score by 13 points in 8 weeks for improved functional mobility. Pt will demonstrate R shoulder MMT strength at least 4/5 in 8 weeks for improved tolerance to lifting activities. Pt will demonstrate ability to complete all ADLs with min to no pain or limitation in 8 weeks for return to PLOF. Treatment Plan: Modalities to reduce pain, spasms and effusion. Manual therapy to restore motion and function. Therapeutic exercise to improve strength and flexibility. Neuromuscular re-education for posture and balance. Therapeutic activities to return to functional activities of daily living. Electronically signed by: Katiana Gotti, PT, DPT, ATC Please sign and return to therapist. Thank you for your referral.
--- NOTE | 2024-12-06 14:28 | MHC.PT.DC ---
[facility] [place] [facility] [place] Office [place] Office [address] John Villavicencio [address] [phone] F: [phone] F: [phone] F: [phone] F: [phone] Physical Therapy Discharge Report Diagnosis: s/p RC repair R 08/28/2024 Date of Surgery: 08/28/2024 Date of Evaluation: 10/03/24 Date of Discharge: 12/06/24 Treatments to Date: 6 Cancellations to Date: 0 No Shows to Date: 5 Discharge Status: Visit Non-compliance Discharge Summary: Pt failed to comply with [facility] attendance policy and no showed 5 visits. Therefore to be d/c. Electronically signed by: Katiana Gotti, PT, DPT, ATC Please sign and return to therapist. Thank you for your referral.
== END 2024-12-06 14:28 | disposition home or self-care (01) ==
LOC: HO.PTCHIC 10:00
PROVIDERS: PCP Internal Medicine; Visit Provider Physician Assistant
DX: M75.101 Unspecified rotator cuff tear or rupture of right shoulder, not specified as traumatic (principal); Z98.890 Other specified postprocedural states
CPT/HCPCS: 97110; 97140; 97161

== ENCOUNTER 2024-11-28 11:23 | Outpatient (AMB) | payer MEDICARE, MEDICAID, SELFPAY ==
--- NOTE | 2024-11-28 12:15 | MHC.OFFVIS ---
Intake Visit Reasons: OV - RT RTC 08/28/24 NE Intake Note: Emilee is a 64 year old female who presents today for a follow up visit for her Right RTC 08/28/24 NE. Patient states that no numbness or tingling to report at this time. She states that her ROM is doing much better and noted that she stopped going to physical therapy due to feeling like she can do this at home. Allergies hydrocodone (From VICODIN) Allergy (Mild, Verified 11/28/24 12:19) NAUSEA & VOMITING HPI HPI OV - RT RTC 08/28/24 NE: Details: Ms. Cortes this is a 64-year-old right-hand dominant female who presents to the office today status post right shoulder rotator cuff repair performed on 08/28/[address] Culp. Patient states that she stopped going to physical therapy because she is able to perform the exercises on her own. She denies any pain at this time. She still has some limitations with range of motion but overall is happy with her progress. [facility] Medical History KASEY (generalized anxiety disorder) Fibromyalgia NAFLD (nonalcoholic fatty liver disease) Obesity VICKY (obstructive sleep apnea) COPD (chronic obstructive pulmonary disease) HTN (hypertension) Restless leg syndrome Surgical History History of total right knee replacement (~10/03/16) Previous section Social History Are you a primary primary care sales representative to a significant other at home: No Do you presently have visiting nurse or other home services: No Patient Tobacco Use Status: Former Tobacco user Second Hand Smoke Exposure: No Current occupational status: retired Current occupation: Right Handed Review of Systems Const All systems reviewed & are unremarkable except as noted in HPI and below Physical Exam Const General: cooperative, healthy appearing and no acute distress Resp Effort & Inspection: normal respiratory effort and able to speak in complete sentences Extrem Other: Right shoulder lacking about 30 degrees of forward flexion and abduction. External rotation to 45 degrees. NVI Psych Appearance: grossly normal Mental Status: mental status grossly normal Attitude: cooperative Assessment & Plan Assessment & Plan (1) Status post right rotator cuff repair: Code(s): Z98.890 - Other specified postprocedural states Category: Surgical Plan Ms. Cortes this is a 64-year-old right-hand dominant female who presents to the office today status post right shoulder rotator cuff repair performed on 08/28/[address] Culp. Patient states that she stopped going to physical therapy because she is able to perform the exercises on her own. She denies any pain at this time. She still has some limitations with range of motion but overall is happy with her progress. While the office today, the patient expresses that she no longer wants to attend physical therapy. I did encourage that she she will continue her home exercise program as she still has not met full range of motion. However, the patient states that she is very happy with her range of motion and has greatly improved since prior to surgery. Patient will follow up PRN, sooner if needed. Coding Level of Care Code Global (01954) Diagnoses Status post right rotator cuff repair Z98.890
--- OUTSIDE RECORDS SUMMARY | 2024-11-28 12:30 | XMS_ITS | Clinical Summary ---
Author Organization [facility] Address [address] [place] [address] Care Team Providers Care Resource Management Planner Name Role Phone Danielle Evans MD Primary Care Provider [phone] Allergies Active Allergy Reactions Criticality Noted Date [...] 09/25/2015 Chronic obstructive pulmonar y disease ([facility] V24, [facility] V28) 05/09/2015 IBS (irritable bowel syndrome) 01/23/2015 Obesity, morbid (more than 1 00 lbs over ideal weight or BMI > 40) ([facility] V24, [facility] V28) 08/20/2013 Seizures ([facility] V24, [facility] V28) 10/22/2012 Chronic pain 12/07/2010 Fatty liver 07/07/2010 Elevated alkaline phosphatase level 05/17/2010 Sleep apnea 12/10/2009 Hyperlipidemia 12/29/2008 Depression 07/01/2008 DJD (degenerative joint disease), lumbar 009 Restless leg syndrome 04/22/2008 Immunizations Name Administration Dates Next Due Influenza Quadravalent, MDCK , 0.5ml, preservative free (Flucelvax) 6mo and older 12/30/2021,05/13/2021,01/13/2020,05/03,05/01/2018 Influenza trivalent, with pr eservative (Fluzone; Afluria) 6mo and older 01/22/2013,12/23/2011,01/06/2011,03/19,02/21/2008 Influenza, Unspecified 01/12/2015 frestyl SARS-CoV-2 COVID-19, mRNA, LNP-S, preservative free 05/26/2021 [...] repeat in ten years ESOPHAGOGASTRODUODENOSCOPY 05/11/10 PROCEDURE: [place] ESOPHAGOGASTRODUODENOSCOPY TRANSORAL DIAGNOSTIC; COMMENT: normal Medical History Medical History Date Comments Historical Medical DX 01/10/2008 DX:COPD Restless leg syndrome DX:Restles s leg syndrome Back pain DX:Back pain Obesity DX:Obesity Depression DX:Depression Hyperlipemia DX:Hyperlipemia Fatty liver 07/07/2010 DX:Fatty liver Abdominal pain 02/07/2011 DX:Abdominal dennise n Diverticulitis 05/24/11, sigmoid DX:Diverticuliti s Seizures (CMS/HCC V24, CMS/HCC V28) 11/2012 DX:Seizures ([facility]); COMMENT: Dr Casey Family History Medical History [...] series) 2020 Colorectal Cancer Screening: Colonoscopy 03/26/2022 HIV Screening 03/26/2022 Medicare Annual Wellness Visit 03/26/2022 Social Influencers of Health Screening 03/26/2022 Breast Cancer Screening 07/08/2022 07/08/2020, 07/06 COVID-19 Vaccine ( season) 2023 05/26/2021, 08/07/2020, 07/15/2020 Depression Screening 04/17/2024 Influenza Vaccine (#1) 2024 , 05/13/2021, 01/13/2020, Additional history exists Cholesterol [...] % Breast cancer risk category Low (<15%) us Danielle Evans MD IMG XR PROCEDURES Final Result * Cervical Cancer Screening: HPV (02/11/2013) [facility] Cervical Cancer Screening: HPV normal,abs tracted Historical Provider HEALTH MAINTENANCE Final Result * Hepatitis C Screening (08/30/2012) [facility] Hepatitis C Screening abstracted Historical Provider HEALTH MAINTENANCE Final Result from Last 3 Months or Most Recently Relevant to Health Maintenance Care Teams Resource Management Planner Relationship Specialty Start Date End Date Danielle Evans MD [address] [place] [address] PCP - General 05/23/1997
== END 2024-11-28 12:26 | disposition home or self-care (01) ==
LOC: HO.HOS 11:24
PROVIDERS: PCP Internal Medicine; Visit Provider Physician Assistant
DX: Z47.89 Encounter for other orthopedic aftercare (principal); S46.011D Strain of muscle(s) and tendon(s) of the rotator cuff of right shoulder, subsequent encounter; S43.431D Superior glenoid labrum lesion of right shoulder, subsequent encounter
CPT/HCPCS: 99213

== ENCOUNTER → 2024-11-28 11:23 | Outpatient (BNVA) | payer MEDICARE, MEDICAID, SELFPAY | PROVIDERS: PCP Internal Medicine; Visit Provider Physician Assistant | DX: Z98.890 Other specified postprocedural states (principal) | CPT/HCPCS: 99212 ==